=== PATIENT | female | born 1945 | race Caucasian/White ===

== ENCOUNTER → 2019-12-16 10:16 | Outpatient (BNVA) | payer MEDICARE, SELFPAY | PROVIDERS: Visit Provider Nurse Practitioner Family | DX: I10 Essential (primary) hypertension (principal); E11.9 Type 2 diabetes mellitus without complications; E55.9 Vitamin D deficiency, unspecified; F41.9 Anxiety disorder, unspecified; F32.9 Major depressive disorder, single episode, unspecified; E78.5 Hyperlipidemia, unspecified; M19.90 Unspecified osteoarthritis, unspecified site; R25.1 Tremor, unspecified | CPT/HCPCS: 80053; 80061; 82044; 82306; 83036; 84443; 85025 ==

== ENCOUNTER → 2020-06-28 09:37 | Outpatient (BNVA) | payer MEDICARE, SELFPAY | PROVIDERS: Visit Provider Nurse Practitioner Family | DX: M25.561 Pain in right knee (principal); M25.562 Pain in left knee; N32.81 Overactive bladder; E11.9 Type 2 diabetes mellitus without complications; Z78.0 Asymptomatic menopausal state; Z12.39 Encounter for other screening for malignant neoplasm of breast | CPT/HCPCS: 73562; 80053; 80061; 81003; 83036; 85025; 87077; 87086; 87186 ==

== ENCOUNTER 2020-08-23 14:15 | Outpatient (CLI) | payer MEDICARE, SELFPAY ==
--- NOTE | 2020-08-23 14:30 | MM_ITS ---
WS: [id number] BILATERAL SCREENING DIGITAL MAMMOGRAM WITH CAD HISTORY: screening COMPARISON: 08/15/2017 and 12/04/2013 Bilateral CC and MLO views submitted. Computer aided detection analyzed. Breast composition: There are scattered areas of fibroglandular density. No suspicious masses, microc alcifications or architectural distortion. Numerous benign calcifications in each breast. MM/[place] [id number] IMPRESSION: BI-RADS: 2-Benign FOLLOW UP: 1 Year Follow-up
--- NOTE | 2020-08-23 15:04 | XR_ITS ---
WS: [id number] SCREENING DEXA SCAN [employer] CLINICAL INFORMATION: osteoporosis screen COMPARISON: 3 FINDINGS: The L1-L4 bone mineral density measures 1.289 g/cm2. This corresponds to a T score score of 0.9 and Z score of 1.5. Left femoral neck bone mineral density measures 0.954 g/cm2. This corresponds to a T score of -0.4 an d Z score of 0.4. Right femoral neck bone mineral density measures 1.045 g/cm2. This corresponds to a T score 0.3of and Z score of 1.1. Mean femoral neck bone mineral density measures 1.000 g/cm2. This corresponds to a T score of -0.1 an d Z score of 0.8. XR/XR DEXA axial skeleton* [id number] IMPRESSION: Normal bone mineralization. Patient's FRAX calculated 10 year probability for major osteoporotic fracture i s 11.9 % and osteoporotic hip fracture is 1.0%.
== END 2020-08-23 14:16 | disposition home or self-care (01) ==
LOC: RADSHAW 14:23
PROVIDERS: PCP Nurse Practitioner Family; Visit Provider Nurse Practitioner Family
DX: Z12.31 Encounter for screening mammogram for malignant neoplasm of breast (principal); Z78.0 Asymptomatic menopausal state
CPT/HCPCS: 77067; 77080

== ENCOUNTER → 2020-10-12 09:28 | Outpatient (BNVA) | payer OTHER, SELFPAY | PROVIDERS: PCP Nurse Practitioner Family; Visit Provider Nurse Practitioner Family | DX: N32.81 Overactive bladder (principal); E11.9 Type 2 diabetes mellitus without complications; E55.9 Vitamin D deficiency, unspecified; I10 Essential (primary) hypertension; M15.9 Polyosteoarthritis, unspecified; R25.1 Tremor, unspecified; Z00.00 Encounter for general adult medical examination without abnormal findings; F41.9 Anxiety disorder, unspecified; F32.9 Major depressive disorder, single episode, unspecified; E78.5 Hyperlipidemia, unspecified | CPT/HCPCS: 80053; 80061; 82043; 82306; 83036; 84443; 85025 ==

== ENCOUNTER 2020-10-27 06:00 | Outpatient (RCR) | payer MEDICARE, SELFPAY | END 2020-10-31 23:59 | disposition home or self-care (01) | LOC: TPT 06:00 | PROVIDERS: PCP Nurse Practitioner Family; Referring Provider Nurse Practitioner Family; Visit Provider Nurse Practitioner Family | DX: M15.9 Polyosteoarthritis, unspecified (principal); R25.1 Tremor, unspecified | CPT/HCPCS: 97161 ==

== ENCOUNTER 2020-11-01 06:00 | Outpatient (RCR) | payer MEDICARE, SELFPAY | END 2020-11-28 23:59 | disposition home or self-care (01) | LOC: TPT 06:00 | PROVIDERS: PCP Nurse Practitioner Family; Referring Provider Nurse Practitioner Family; Visit Provider Nurse Practitioner Family | DX: M15.9 Polyosteoarthritis, unspecified (principal); R25.1 Tremor, unspecified | CPT/HCPCS: 97110 ==

== ENCOUNTER 2020-11-24 06:00 | Outpatient (RCR) | payer MEDICARE, SELFPAY | END 2020-11-28 23:59 | disposition home or self-care (01) | LOC: TOT 06:00 | PROVIDERS: PCP Nurse Practitioner Family; Referring Provider Nurse Practitioner Family; Visit Provider Nurse Practitioner Family | DX: M19.049 Primary osteoarthritis, unspecified hand (principal) | CPT/HCPCS: 97110; 97140; 97165 ==

== ENCOUNTER 2020-11-29 06:00 | Outpatient (RCR) | payer MEDICARE, SELFPAY | END 2020-12-29 23:59 | disposition home or self-care (01) | LOC: TPT 06:00 | PROVIDERS: PCP Nurse Practitioner Family; Referring Provider Nurse Practitioner Family; Visit Provider Nurse Practitioner Family | DX: M19.049 Primary osteoarthritis, unspecified hand (principal) | CPT/HCPCS: 97110 ==

== ENCOUNTER 2020-11-29 06:00 | Outpatient (RCR) | payer MEDICARE, SELFPAY | END 2020-12-29 23:59 | disposition home or self-care (01) | LOC: TOT 06:00 | PROVIDERS: PCP Nurse Practitioner Family; Referring Provider Nurse Practitioner Family; Visit Provider Nurse Practitioner Family | DX: M19.049 Primary osteoarthritis, unspecified hand (principal) | CPT/HCPCS: 97035; 97110; 97140; 97530 ==

== ENCOUNTER 2020-12-30 06:00 | Outpatient (RCR) | payer MEDICARE, SELFPAY | END 2021-01-26 16:33 | disposition home or self-care (01) | LOC: TPT 06:00 | PROVIDERS: PCP Nurse Practitioner Family; Referring Provider Nurse Practitioner Family; Visit Provider Nurse Practitioner Family | DX: M19.049 Primary osteoarthritis, unspecified hand (principal) | CPT/HCPCS: 97110 ==

== ENCOUNTER → 2021-03-31 09:34 | Outpatient (BNVA) | payer MEDICARE, SELFPAY | PROVIDERS: PCP Nurse Practitioner Family; Visit Provider Nurse Practitioner Family | DX: E11.9 Type 2 diabetes mellitus without complications (principal); E55.9 Vitamin D deficiency, unspecified | CPT/HCPCS: 80053; 80061; 82306; 83036; 84443; 85025 ==

== ENCOUNTER → 2021-10-18 10:52 | Outpatient (BNVA) | payer MEDICARE, SELFPAY | PROVIDERS: PCP Nurse Practitioner Family; Visit Provider Nurse Practitioner Family | DX: Z00.00 Encounter for general adult medical examination without abnormal findings (principal); N32.81 Overactive bladder; E11.9 Type 2 diabetes mellitus without complications; F32.9 Major depressive disorder, single episode, unspecified; F41.9 Anxiety disorder, unspecified; E55.9 Vitamin D deficiency, unspecified; R25.1 Tremor, unspecified; E78.5 Hyperlipidemia, unspecified; M15.9 Polyosteoarthritis, unspecified; I10 Essential (primary) hypertension; J30.9 Allergic rhinitis, unspecified | CPT/HCPCS: 80053; 80061; 82306; 82607; 83036; 84443; 85025 ==

== ENCOUNTER 2022-03-01 10:03 | Outpatient (CLI) | payer MEDICARE, SELFPAY ==
--- NOTE | 2022-03-01 10:17 | MM_ITS ---
WS: [id number] Bilateral screening 3D tomosynthesis digital mammogram, 03/01/2022 Clinical Data: Z12.31 - Encounter for screening mammogram for malignant ... Comparison: 08/23/2020, 08/15/2017, 12/04/2013, 11/11/2012, 09/19/2011, 09/01/2010, 08/18/2009, 8, 06/24/2007 Findings: The breast parenchymal pattern shows air genies density No spiculated masses or clustered calcificati ons are seen. There are no secondary signs of carcinoma. There are large benign calcifications especi ally in the right breast but also small calcifications noted in the left breast MM/[place] [id number] Impression: 1. Negative bilateral mammogram unchanged. 2. Recommend annual screening mammograms. BIRADS: 2-Benign FOLLOW UP: 1 Year Follow-up The CAD wash test checker was used.
== END 2022-03-01 10:04 | disposition home or self-care (01) ==
LOC: RAD 10:04
PROVIDERS: PCP Nurse Practitioner Family; Visit Provider Nurse Practitioner Family
DX: Z12.31 Encounter for screening mammogram for malignant neoplasm of breast (principal)
CPT/HCPCS: 77063; 77067

== ENCOUNTER → 2022-05-17 08:12 | Outpatient (BNVA) | payer MEDICARE, SELFPAY | PROVIDERS: PCP Nurse Practitioner Family; Visit Provider Nurse Practitioner Family | DX: E55.9 Vitamin D deficiency, unspecified (principal); E78.5 Hyperlipidemia, unspecified; E11.9 Type 2 diabetes mellitus without complications; I10 Essential (primary) hypertension | CPT/HCPCS: 80053; 80061; 82043; 82306; 83036; 84443; 85025 ==

== ENCOUNTER → 2022-05-23 13:28 | Outpatient (BNVA) | payer MEDICARE, SELFPAY | PROVIDERS: PCP Nurse Practitioner Family; Visit Provider Nurse Practitioner Family | DX: M25.512 Pain in left shoulder (principal) | CPT/HCPCS: 73030 ==

== ENCOUNTER → 2022-10-06 14:30 | Outpatient (BNVA) | payer MEDICARE, SELFPAY | PROVIDERS: PCP Nurse Practitioner Family; Visit Provider Nurse Practitioner Family | DX: M25.511 Pain in right shoulder (principal) | CPT/HCPCS: 73030 ==

== ENCOUNTER → 2022-10-09 09:48 | Outpatient (BNVA) | payer MEDICARE, SELFPAY | PROVIDERS: PCP Nurse Practitioner Family; Visit Provider Nurse Practitioner Family | DX: E11.9 Type 2 diabetes mellitus without complications (principal); M25.511 Pain in right shoulder; N32.81 Overactive bladder; R25.1 Tremor, unspecified; F32.9 Major depressive disorder, single episode, unspecified; F41.9 Anxiety disorder, unspecified; M15.9 Polyosteoarthritis, unspecified; E78.5 Hyperlipidemia, unspecified; I10 Essential (primary) hypertension | CPT/HCPCS: 80053; 80061; 83036; 85025 ==

== ENCOUNTER → 2022-10-17 15:34 | Outpatient (BNVA) | payer MEDICARE, SELFPAY | PROVIDERS: PCP Nurse Practitioner Family; Visit Provider Orthopaedic Surgery | DX: M17.0 Bilateral primary osteoarthritis of knee (principal) | CPT/HCPCS: 20610; 99213; J0702; J3490 ==

== ENCOUNTER → 2022-11-21 10:52 | Outpatient (BNVA) | payer MEDICARE, SELFPAY | PROVIDERS: PCP Nurse Practitioner Family; Visit Provider Orthopaedic Surgery | DX: M17.12 Unilateral primary osteoarthritis, left knee (principal) | CPT/HCPCS: 73560; 73565; 99213 ==

== ENCOUNTER → 2022-12-18 12:08 | Outpatient (BNVA) | payer MEDICARE, SELFPAY | PROVIDERS: PCP Nurse Practitioner Family; Visit Provider Nurse Practitioner Family | DX: R05.9 Cough, unspecified (principal); R50.9 Fever, unspecified; M25.511 Pain in right shoulder; J40 Bronchitis, not specified as acute or chronic | CPT/HCPCS: 87400; 87486; 87581; 87633 ==

== ENCOUNTER 2023-01-03 06:00 | Outpatient (RCR) | payer MEDICARE, SELFPAY | END 2023-01-28 23:59 | disposition home or self-care (01) | LOC: TPT 06:00 | PROVIDERS: Visit Provider Nurse Practitioner Family | DX: M25.511 Pain in right shoulder (principal) | CPT/HCPCS: 97110; 97140; 97163 ==

== ENCOUNTER 2023-01-05 08:28 | Outpatient (CLI) | payer MEDICARE, SELFPAY ==
--- NOTE | 2023-01-05 08:45 | CT_ITS ---
WS: [id number] CT LEFT knee, noncontrast HISTORY: pre op planning TECHNIQUE: Protocol for [facility] total knee replacement has been obtained. This includes axial imaging th rough the LEFT hip, LEFT knee and LEFT ankle. DLP: 991.93 mGy.cm COMPARISON: None available. Pelvis: Mild narrowing of the hip joints. No destructive bone process. LEFT knee: Moderate to severe tricompartment osteoarthritis. Hypertrophic bone formation along the sanchez int lines. No fracture. Small joint effusion. Calcified loose body within the joint effusion. LEFT ankle no destructive process or fracture. CT/CT knee LT [facility] IMPRESSION: CT imaging provided for [facility] robotic total knee replacement.
== END 2023-01-05 08:29 | disposition home or self-care (01) ==
LOC: RAD 08:34
PROVIDERS: PCP Nurse Practitioner Family; Visit Provider Orthopaedic Surgery
DX: Z01.818 Encounter for other preprocedural examination (principal); M17.12 Unilateral primary osteoarthritis, left knee
CPT/HCPCS: 73700; 93005

== ENCOUNTER 2023-01-15 13:21 | Observation (INO) | payer MEDICARE, SELFPAY ==
--- NOTE | 2023-01-05 10:12 | ECG_ITS ---
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 Measurements Intervals [place] Rate: 66 P: 27 FL: 187 QRS: -15 QRSD: 99 T: 60 QT: 386 QTc: 407 Interpretive Statements SINUS RHYTHM LOW QRS VOLTAGE IN PRECORDIAL LEADS [QRS DEFLECTION < 1.0 mV IN CHEST LEADS] ANTERIOR MYOCARDIAL INFARCTION , PROBABLY OLD [40+ ms Q WAVE AND/OR ST/T ABNORMALITY IN V3/V4] No previous ECG available for comparison Electronically Signed On 01-05-2023 21:39:39 CDT by Ashtyn Johnson M.D. [id number]
[2023-01-05 10:27] VITALS: BMI 35.2
[2023-01-05 11:26] LABS: Basophils % 0.3 %; Eosinophils % 0.5 %; Hematocrit 43.4 % (37.0-47.0); Hemoglobin 14.4 g/dL (11.5-15.3); Lymphocytes # 1.7 10^3/uL (0.8-4.8); Lymphocytes % 28.1 %; Mean Corpuscular HGB Conc 33.2 g/dL (30.0-36.0); Mean Corpuscular Hemoglobin 30.5 pg (28.0-34.0); Mean Corpuscular Volume 91.9 fl (81-99); Mean Platelet Volume 11.6 fL (7.4-10.4); Monocytes # 0.4 10^3/uL (0.2-0.9); Monocytes % 7.2 %; Neutrophils # 3.81 10^3/uL (1.8-7.7); Neutrophils % 63.7 %; Nucleated Red Blood Cells % 0 %; Platelet Count 195 10^3/cmm (130-400); Red Blood Count 4.72 10^6/uL (4.1-5.3); Red Cell Distribution Width 12.7 % (12.1-15.1)
[2023-01-05 11:35] LABS: Anion Gap 16.8 (5-19); Blood Urea Nitrogen 17 mg/dL (8-23); Carbon Dioxide 25 mmol/L (22-29); Chloride 103 mmol/L (98-107); Glucose 176 mg/dL (65-115); Osmolality Calculated 298 mOsm/kg (285-295); Potassium 3.8 mmol/L (3.5-5.1); Sodium 141 mmol/L (136-145)
--- NOTE | 2023-01-05 13:08 | P.ANESASSM_ITS ---
Pre-Anesthetic Assessment Height/Weight: Height 1.73 m Weight 105.233 kg Operation Date: 01/15/23 07:00 Proposed Procedures p left total knee makoplasty/ 14301, M17.12(Left) - Patricio Anderson MD Social No alcohol and No tobacco Exam alert, oriented x 3, clear to auscultation bilaterally and regular rate & rhythm Airway Submandibular: Other (obese) Cervical ROM: Other (obese) Mallampati: Class III Pulmonary None reported CV/HEM Hypertension None reported Hepatic None reported GI None reported Metabolic Diabetes Mellitus, Hyperlipidemia and Morbid Obesity [facility] [place] Osteoarthritis/DJD Anesthetic Plan ASA status: 3 Anesthesia: General and Regional (specify below) (Adductor Canal Block) Medications/Allergies Home Medications Medication Instructions Recorded Confirmed Last Taken Type primidone 50 mg tablet 75 mg PO TID #405 tabs 10/18/21 01/05/23 01/05/23 Rx fluticasone propionate 50 2 spray intranasal DAILY #9.9 mL 05/24/22 01/05/23 01/05/23 Rx mcg/actuation nasal spray,suspension (Flonase Allergy Relief) dapagliflozin 10 mg tablet 10 mg PO QAM #30 tabs 08/21/22 01/05/23 01/05/23 Rx (Farxiga) blood sugar diagnostic (Blood #100 ea 10/09/22 12/18/22 Unknown Rx Glucose Test strips) blood-glucose meter (Blood Glucose #1 ea 10/09/22 12/18/22 Unknown Rx Monitoring kit) blood sugar diagnostic (OneTouch #100 ea 11/15/22 12/18/22 Unknown Rx Verio test strips) promethazine-DM 6.25 mg-15 mg/5 mL 5 ml PO Q6H PRN cough #118 mL 01/02/23 01/05/23 Unknown Rx oral syrup aspirin 81 mg capsule 81 mg PO DAILY 01/05/23 01/05/23 01/05/23 History atorvastatin 20 mg tablet 20 mg PO DAILY 01/05/23 01/05/23 01/05/23 History cetirizine 10 mg tablet 10 mg PO DAILY 01/05/23 01/05/23 01/05/23 History citalopram 10 mg tablet 10 mg PO DAILY 01/05/23 01/05/23 01/05/23 History irbesartan 150 mg tablet 150 mg PO DAILY 01/05/23 01/05/23 01/05/23 History meloxicam 15 mg tablet 15 mg PO DAILY 01/05/23 01/05/23 01/05/23 History metoprolol tartrate 25 mg tablet 25 mg PO DAILY 01/05/23 01/05/23 01/05/23 History oxybutynin chloride 10 mg 10 mg PO DAILY 01/05/23 01/05/23 01/05/23 History tablet,extended release 24 hr verapamil 120 mg tablet,extended 120 mg PO DAILY 01/05/23 01/05/23 01/05/23 History release Allergies Allergy/AdvReac Type Severity Reaction Status Date / Time Penicillins Allergy Intermediate rash Verified 12/18/22 08:52 [facility] Anesthesia Medical History Anxiety and depression Diabetes mellitus Enrolled in chronic care management GERD (gastroesophageal reflux disease) Hyperlipidemia Hypertension Osteoarthritis Tremor Surgical History Hx of colonoscopy (~2013) Family History Family/Other Cancer Diabetes Heart disease Social History Smoking and tobacco status: never smoked Second hand smoke exposure: No Alcohol intake: never Caregiver/support person: Yes (family) Lives independently: Yes Household members: none Housing: House Marital status: service: No Current occupational status: employed Current occupation: [employer] Current gender identity: Female Special hay needs: No Agree to transfusion: Yes Data Anesthesia 01/05/23 10:55 01/05/23 10:55 Short CBC 01/05/23 Range/Units 10:55 WBC 6.0 (4.0-10.0) 10^3/uL Hgb 14.4 (11.5-15.3) g/dL Hct 43.4 (37.0-47.0) % MCV 91.9 (81-99) fl Plt Count 195 (130-400) 10^3/cmm Neut % (Auto) 63.7 % Neut # (Auto) 3.81 (1.8-7.7) 10^3/uL BMP 01/05/23 10:55 Sodium 141 Potassium 3.8 Chloride 103 Carbon Dioxide 25 BUN 17 Creatinine 0.6 Glucose 176 H Calcium 9.0 Cardiac Studies: No Data to Display
[2023-01-15] VITALS (19 sets, daily range): BP systolic 90–173; BP diastolic 55–86; PULSE 61–82; RESP 14–18; TEMP 36.4–37.2; O2SAT 90–100; BMI 35.2
[2023-01-15] MEDS: gabapentin 300 mg Capsule PO ×2 (06:21→21:51)
[2023-01-15] MEDS: CELEcoxib 200 mg Capsule 400 MG PO (06:22)
[2023-01-15] MEDS: oxyCODONE 20 mg ER (12 HR) Tablet PO (06:22)
[2023-01-15] MEDS: acetaminophen 500 mg Tablet 1000 MG PO ×3 (06:23→23:52)
--- NOTE | 2023-01-15 06:57 | W.PM.OPSFHP ---
Same Day Surgery H&P Indication for Procedure/HPI DATE OF PROCEDURE: January 15, 2023 CHIEF COMPLAINT/INDICATIONFOR SURGICAL PROCEDURE: Osteoarthritis left knee here for total knee arthroplasty PREOP DIAGNOSIS: Osteoarthritis left knee PLANNED PROCEDURE: Operation Date: 01/15/23 07:00 Proposed Procedures p left total knee makoplasty/ 84870, M17.12(Left) - Patricio Anderson MD 77-year-old here for left total knee arthroplasty she reports that prior injections have stopped giving her manager long term care benefit.? Last injection she received a few weeks ago provided only 2 weeks improvement.? States she has a very good pain threshold but has a very hard time getting around.? She relies on a walker with wheels to get around her house.? She has a difficult time with any time out in the community.? Medications/Allergies* Home Medications Medication Instructions Recorded Confirmed Type aspirin 81 mg capsule 81 mg PO DAILY 01/05/23 01/05/23 History atorvastatin 20 mg tablet 20 mg PO DAILY 01/05/23 01/15/23 History cetirizine 10 mg tablet 10 mg PO DAILY 01/05/23 01/15/23 History citalopram 10 mg tablet 10 mg PO DAILY 01/05/23 01/15/23 History irbesartan 150 mg tablet 150 mg PO DAILY 01/05/23 01/15/23 History meloxicam 15 mg tablet 15 mg PO DAILY 01/05/23 01/05/23 History metoprolol tartrate 25 mg tablet 25 mg PO DAILY 01/05/23 01/15/23 History oxybutynin chloride 10 mg 10 mg PO DAILY 01/05/23 01/15/23 History tablet,extended release 24 hr verapamil 120 mg tablet,extended 120 mg PO DAILY 01/05/23 01/15/23 History release Allergies/Adverse Reactions Allergy/AdvReac Type Severity Reaction Status Date / Time Penicillins Allergy Intermediate rash Verified 12/18/22 08:52 Pertinent History/Comorbid Conditions* Medical History (Updated 10/17/22 @ 16:09 by Patricio Anderson MD) Anxiety and depression Diabetes mellitus Enrolled in chronic care management GERD (gastroesophageal reflux disease) Hyperlipidemia Hypertension Osteoarthritis Tremor Surgical History (Updated 06/28/20 @ 09:16 by ILAN Peralta) Hx of colonoscopy (~2013) Family History (Updated 11/28/19 @ 13:35 by Rafaela Young, ELEVATOR CONSTRUCTOR, RT) Diabetes Family/Other Heart disease Family/Other Cancer Family/Other Social History Smoking and tobacco status: never smoked Second hand smoke exposure: No Alcohol intake: never Caregiver/support person: Yes (family) Lives independently: Yes Household members: none Housing: House Marital status: service: No Current occupational status: employed Current occupation: [employer] Current gender identity: Female Special hay needs: No Agree to transfusion: Yes Pertinent Exam Findings alert, oriented x 3, clear to auscultation bilaterally and regular rate & rhythm The patient has a resting varus deformity of her left knee. She is tender over medial joint line. Cannot passively correct her to neutral Cruciate and collateral ligaments are stable Patella tracks well with clear patellofemoral crepitations She has a strong left dorsalis pedis pulse MOTOR: Strong quadriceps hamstrings tibialis anterior and extensor houses longus strength SENSATION: Intact to light touch Recommendations Surgery/Procedure today Coding Level of Care Code Acute Code for Chg Fwd Diagnoses
[2023-01-15] MEDS: ceFAZolin 2,000 MG in sodium chloride 0.9% (plus) 50 ML 100 MG IV ×3 (06:59→23:53)
[2023-01-15 07:09] LABS: Glucose Point of Care 142 mg/dL (70-110)
[2023-01-15] MEDS: EPINEPHrine 1 mg/mL INJ XX (07:52)
[2023-01-15] MEDS: ketorolac 30 mg/mL INJ XX (07:52)
[2023-01-15] MEDS: tranexamic acid 1,000 mg/10mL SDV 1000 MG IRRIGATION (07:52)
--- NOTE | 2023-01-15 08:16 | P.ANESUD_ITS ---
Pre-Anesthetic Update Pre-Anesthetic Assessment: Date of Surgery/Procedure: 01/15/23 Preop Rukhsana gnosis: Osteoarthritis left knee Proposed Procedure: Operation Date: 01/15/23 07:00 Proposed Procedures p left total knee makoplasty/ 75592, M17.12(Left) - Patricio Anderson MD Any changes to Pre-Anesthetic Assessment?: No Last Intake: Intake Last Liquid Date 01/14/23 Last Liquid Time 19:00 Last Solid Date 01/14/23 Last Solid Time 19:00 Vitals: Temperature 97.9 F 01/15/23 06:06 Temperature Source Temporal Artery S can 01/15/23 06:06 Pulse Rate 61 01/15/23 06:06 Respiratory Rate 16 01/15/23 06:22 Respiratory Effort Spontaneous, Non- Labored 01/15/23 06:22 Respiratory Depth Normal 01/15/23 06:22 Respiratory Patter n Normal 01/15/23 06:22 Blood Pressure 173/81 01/15/23 06:06 Blood Pressure Jenae n 111 01/15/23 06:06 Pulse Oximetry 97 01/15/23 06:22 Oxygen Delivery Me thod Room Air 01/15/23 06:06 Exam: Pre-Anes Outpt Exam: alert, oriented x 3, clear to auscultation bilaterally and regular rate & rhythm Cardiac Studies: No Data to Display Anesthesia Procedures Nerve Block: Nerve Block 1: Main Anesthesia: spinal anesthesia block Time Out Performed: Yes Consent: requested by attending/covering physician, from patient, risks and benefits reviewed and patient agrees to proceed Nerve block location: adductor canal (left) Anesthesia monitors applied: pulse oximetry, EKG, BP cuff and oxygen Nerve block position: supine Anesthetic Used: ropivicaine 0.5% Amount of anesthesia used (mL): 20 Ultrasound used to: recognize landmarks Nerve Stimulator Used?: No Interscalene/Femoral BLK: 4 stimuplex 21 g needle used for position and inplane approach Injection: neg aspiration of heme Patient Tolerated Procedure: well Complications: none
--- NOTE | 2023-01-15 08:54 | PM.OP ---
Operative Report Date of procedure: January 15, 2023 Pre-op diagnosis: Preop Diagnosis Osteoarthritis left knee Post-op diagnosis: same Post-op diagnosis: Same Post-op findings: Same Procedure done: Left total knee arthroplasty Implants: [place] Triathalon total knee arthroplasty components were used includin) Size 5 triathalon cruciate retaining femoral component 2) Size 5 Tritanium tibial component 3) Size 5/10 mm thickness CS tibial bearing insert Pathology: none sent Surgeon: Patricio Anderson Industrial Equipment Wirer: Pravin Roblero Industrial Equipment Wirer: The nurse practitioner the nurse practitioner assisted with critical portions of the case including positioning, draping, exposure, component implantation, closure and dressing application and is present through the entirety of the case. Anesthesia: Nerve Block (Spinal, adductor canal block) Estimated blood loss (mL): 100 Findings: The patient eburnated bone over the medial femoral condyle and medial tibial plateau. There were peripheral osteophytes about the patella but cartilage thickness was well-preserved centrally patella tracked well with the trochlea Condition: stable Disposition: PACU Brief History: The patient is a 77-year-old female with progressive activity limiting left knee pain failed conservative treatment with anti-inflammatories and injections. She is admitted for elective left total knee arthroplasty Procedure: The patient was taken to the operating room. Patient was given 1 g of tranexamic acid and 2 g of Ancef. The above anesthesia provided by the anesthesia service. A timeout was performed. The patient was prepped and draped in the usual fashion with the lower extremity exposed. A anterior incision was made, midline, from a point proximal to the patella to the distal tibial tubercle. The knee was entered through a medial parapatellar approach. The patella could be displaced laterally and the knee flexed. The patellar fat pad was resected to provide better visibility. Retractors were placed medially and laterally adjacent to the tibial plateau. At a point approximately 8 cm above the patella, 2 small incisions were made with a scalpel blade and 2 long threaded pins were placed into the anterior medial femur engaging both cortices. The femoral arrays were placed over these pins and secured. At a point 8 cm distal to the tibial tubercle. 2 shorter bicortical threaded pins were placed across the anterior medial tibia and the tibial arrays placed. A checkpoint was made just proximal and medial to the medial femoral condyle and just medial to the tibial plateau. Small osteotomes were placed in the joint in both flexion and extension to determine ligamentous laxity. The tibia was cut in 4 degrees of valgus and the femur externally rotated 1 degree to accommodate heel compartment tightness in flexion and extension.. The Vringo robot was then introduced to the field and the femur and tibia cut in accordance with our plan. he [employer] Fastseal was then used to provide hemostasis, particularly about the posterior capsule. A trial with the above components provided excellent stability and full range of motion. The femur was then prepared for the femoral pegs of the component in the tibia for the tibial component. The femur and tibia were then press-fit into place. An osteotome was used to remove the lateral 8 mm of the patella to minimize chances of later impingement. A neurectomy was accomplished circumferentially about the patella with electrocautery and lateral osteophytes removed. Surfaces were cleaned with a gentamicin solution. The femur and tibia were then press-fit into place. The posterior capsule and collateral ligaments were then injected with a solution of 100 mL of 0.2% ropivacaine, 1 mL of a 1:1000 epinephrine solution, 30 mg of Toradol, and 1 g of tranexamic acid. Final polyethylene component was then snapped into place into the tibia. The extensor retinaculum was closed with a running 1 Stratafix interrupted 1 Ethibond. The subcutaneous tissues were closed with 2-0 Vicryl and the skin was closed with a running 4-0 Stratafix. The wound was covered with a Dermabond Prineo dressing. It was covered with 4xrs and a compressive Tubigauze was applied. The patient was taken to recovery room in stable condition.
--- NOTE | 2023-01-15 09:05 | XR_ITS ---
WS: [id number] Left knee, AP and lateral portable views, 01/15/2023 Clinical Data: Left Total knee arthroplasty Comparison: AP both knees, left knee, 11/21/2022 Findings: The left knee arthroplasty components are in good position. The left patella shows no change with mod erate spurring. There is postoperative air in the left knee joint. XR/XR knee LT 1-2V [id number] Impression: Left knee arthroplasty.
--- NOTE | 2023-01-15 09:16 | PC.NURSE ---
Pt arrived to PACU, O2 at 6L/min via simple mask in place. Dressing to left knee C/D/I, left toes w/d, cap refill <3 seconds, good pedal pulse. Ice pack applied.
--- NOTE | 2023-01-15 09:30 | PC.NURSE ---
Pt awake, O2 removed, sats remain >92% on RA. Pt reports sensation at level L2 and above. Able to wiggles toes.
[2023-01-15] MEDS: oxyCODONE 5 mg IR Tab/Cap PO ×2 (12:34→18:19)
[2023-01-15] MEDS: primidone 50 mg Tablet 75 MG PO ×2 (14:22→21:51)
[2023-01-15] MEDS: sodium chloride 0.9% 1,000 ML 100 ML IV ×2 (14:22→23:54)
[2023-01-15] MEDS: cetirizine 10 mg Tablet PO (14:23)
[2023-01-15] MEDS: sennosides-docusate Tablet 2 TAB PO ×2 (14:23→17:58)
--- NOTE | 2023-01-15 14:59 | ANE.PACU2 ---
Inpatient post-anesthesia follow up: Airway intact: Yes Vital signs: Temperature 97.7 F Pulse Rate 67 Respiratory Rate 18 Blood Pressure 149/69 Pulse Oximetry 95 Oxygen Delivery Me thod Room Air Oxygen Flow Rate 6 Fraction of Inspir ed Oxygen Hydration adequate: Yes Nausea and vomiting: No Pain level: 2 Mental status: Baseline
--- NOTE | 2023-01-15 21:49 | PC.NURSE ---
Capillary Blood Glucose at 2100 171, Accuchek not docking.
[2023-01-15] MEDS: CELEcoxib 200 mg Capsule PO (21:51)
[2023-01-15] MEDS: insulin lispro 100 unit/1 mL SUBCUT (21:51)
[2023-01-15] MEDS: atorvastatin 40 mg Tablet 20 MG PO (21:51)
[2023-01-15] MEDS: metoprolol tartrate 25 mg Tablet PO (21:52)
[2023-01-16] VITALS: BP 130/57; PULSE 68; RESP 16; TEMP 36.8; O2SAT 91
[2023-01-16 04:37] VITALS: BP 134/69; PULSE 72; RESP 18; TEMP 36.7; O2SAT 93
[2023-01-16] MEDS: ceFAZolin 2,000 MG in sodium chloride 0.9% (plus) 50 ML 100 MG IV (06:06)
[2023-01-16] MEDS: acetaminophen 500 mg Tablet 1000 MG PO (06:07)
[2023-01-16 06:23] VITALS: RESP 16
[2023-01-16] MEDS: oxyCODONE 5 mg IR Tab/Cap PO ×2 (06:23→10:43)
--- NOTE | 2023-01-16 07:25 | PM.DCS ---
Discharge Providers Date of Admission: 01/15/23 13:21 Date of Discharge: January 16, 2023 Attending Provider at Admission: Patricio Rodrigues MD Attending Provider at Discharge: Patricio Rodrigues MD Primary Care Provider: ILAN Peralta Diagnoses at Discharge Discharge Diagnosis (1) Status post left knee replacement: Status: Acute (2) Osteoarthritis of left knee: Status: Resolved (3) Diabetes mellitus: Status: Acute Qualifiers: Diabetes mellitus type: type 2 Diabetes mellitus ocean transportation intermediary insulin use: without ocean transportation intermediary use Diabetes mellitus complication status: without complication Qualified Code(s): E11.9 - Type 2 diabetes mellitus without complications Reason for Visit Reason for Visit: M17.12 Brief History: The patient is a 77-year-old female with left knee pain attributable to osteoarthritis not responsive to conservative measures. She is admitted for elective left total knee arthroplasty Hospital Course Hospital Course The patient tolerated surgery well. They remained hemodynamically stable. They was begun on aspirin and foot pumps for DVT prophylaxis. The patient was mobilized with therapy beginning the day of surgery and by the first postoperative day independent with the walker. As the pain was adequately controlled and they were fully mobile they were discharged home. Physical Exam Narrative: On the day of discharge the knee incision was clean. They had no drainage. There is minimal swelling in the thigh and knee and the calf. No distal neurovascular deficits were noted Urinary Catheter Management: [place]: Cath Placed During This Visit: yes, but has since been removed by the nurse Reason for Continuing Indwelling Catheter: Perioperative Use in Selected Surgeries Urinary Catheter Date of Insertion: 01/15/23 Urinary Catheter Time of Insertion: 07:15 Date Urinary Catheter Removed: 01/16/23 Time Urinary Catheter Discontinued: 06:33 Discharge Data Studies Completed and Pending Completed Studies During Hospitalization Category Date Time Status XR knee LT 1-2V 40390 Routine Exams 01/15/23 09:05 Completed Pending at discharge Category Date Time Status Hemoglobin AM LABS Lab 01/16/23 04:00 Ordered Radiology Impressions Knee X-Ray 01/15/23 09:05 Impression: Left knee arthroplasty. Laboratory Results WBC 6.0 10^3/uL (4.0-10.0) 01/05/23 10:55 RBC 4.72 10^6/uL (4.1-5.3) 01/05/23 10:55 Hgb 14.4 g/dL (11.5-15.3) 01/05/23 10:55 Hct 43.4 % (37.0-47.0) 01/05/23 10:55 MCV 91.9 fl (81-99) 01/05/23 10:55 MCH 30.5 pg (28.0-34.0) 01/05/23 10:55 MCHC 33.2 g/dL (30.0-36.0) 01/05/23 10:55 RDW 12.7 % (12.1-15.1) 01/05/23 10:55 Plt Count 195 10^3/cmm (130-400) 01/05/23 10:55 MPV 11.6 fL (7.4-10.4) H 01/05/23 10:55 Neut % (Auto) 63.7 % 01/05/23 10:55 Lymph % (Auto) 28.1 % 01/05/23 10:55 [place] % (Auto) 7.2 % 01/05/23 10:55 Eos % (Auto) 0.5 % 01/05/23 10:55 Baso % (Auto) 0.3 % 01/05/23 10:55 Neut # (Auto) 3.81 10^3/uL (1.8-7.7) 01/05/23 10:55 Lymph # (Auto) 1.7 10^3/uL (0.8-4.8) 01/05/23 10:55 [place] # (Auto) 0.4 10^3/uL (0.2-0.9) 01/05/23 10:55 Eos # (Auto) 0.0 10^3/uL (0.0-0.8) 01/05/23 10:55 Baso # (Auto) 0.0 10^3/uL (0.0-0.1) 01/05/23 10:55 Nucleated RBC % (auto) 0 % 01/05/23 10:55 Nucleated RBCs # 0.0 /100WBC 01/05/23 10:55 Sodium 141 mmol/L (136-145) 01/05/23 10:55 Potassium 3.8 mmol/L (3.5-5.1) 01/05/23 10:55 Chloride 103 mmol/L (98-107) 01/05/23 10:55 Carbon Dioxide 25 mmol/L (22-29) 01/05/23 10:55 Anion Gap 16.8 (5-19) 01/05/23 10:55 BUN 17 mg/dL (8-23) 01/05/23 10:55 Creatinine 0.6 mg/dL (0.5-0.9) 01/05/23 10:55 GFR Calculation Not Reportable 01/05/23 10:55 Glucose 176 mg/dL (65-115) H 01/05/23 10:55 POC Glucose 142 mg/dL (70-110) H 01/15/23 06:17 Calculated Osmolality 298 mOsm/kg (285-295) H 01/05/23 10:55 Calcium 9.0 mg/dL (8.5-10.5) 01/05/23 10:55 Vitals Last Vital Signs Temp 98.1 F 01/16/23 04:37 Pulse 72 01/16/23 04:37 Resp 16 01/16/23 06:23 BP 134/69 01/16/23 04:37 Pulse Ox 93 01/16/23 04:37 O2 Del Method Room Air 01/15/23 16:55 O2 Flow Rate 6 01/15/23 09:26 Discharge Plan Discharge Patient Disposition: Home Condition: Stable Prescriptions: New oxycodone 5 mg Tablet 5 mg PO Q4H PRN (Reason: Moderate Pain) 7 Days Qty: 30 0RF acetaminophen 500 mg Tablet 1,000 mg PO Q8H 14 Days Qty: 84 0RF celecoxib 200 mg Capsule 200 mg PO Q12H 14 Days Qty: 28 0RF Continued primidone 50 mg tablet 75 mg PO TID Qty: 405 1RF fluticasone propionate [Flonase Allergy Relief] 50 mcg/actuation spray,suspension 2 spray INTRANASAL DAILY Qty: 9.9 5RF Rx Instructions: administer into each nostril (DME) blood-glucose meter [Blood Glucose Monitoring] Kit See Rx Instructions .ROUTE .MEDSUPPLY Qty: 1 0RF Rx Instructions: use to check blood sugar daily and PRN (DME) Blood Glucose Test Strip See Rx Instructions .ROUTE .MEDSUPPLY Qty: 100 5RF Rx Instructions: use to check blood sugar daily and PRN Farxiga 10 mg tablet 10 mg PO QAM Qty: 30 5RF (DME) OneTouch Verio test strips Strip See Rx Instructions .ROUTE .MEDSUPPLY Qty: 100 4RF Rx Instructions: To test 1 x day promethazine-DM 6.25-15 mg/5 mL syrup 5 ml PO Q6H PRN (Reason: cough) Qty: 118 1RF verapamil 120 mg tablet extended release 120 mg PO DAILY atorvastatin 20 mg tablet 20 mg PO DAILY Rx Instructions: TAKE 1 TABLET BY MOUTH DAILY cetirizine 10 mg tablet 10 mg PO DAILY oxybutynin chloride 10 mg tablet extended release 24hr 10 mg PO DAILY citalopram 10 mg tablet 10 mg PO DAILY meloxicam 15 mg tablet 15 mg PO DAILY irbesartan 150 mg tablet 150 mg PO DAILY metoprolol tartrate 25 mg tablet 25 mg PO DAILY aspirin 81 mg Capsule 81 mg PO DAILY Discharge Orders: Discharge Order (Routine); Ordered 01/16/23 Ordered By: Patricio Rodrigues Other Ambulatory Orders: DME: [facility] (Order) Location: None Selected Ordered By: Patricio Rodrigues Discharge Diet: Advance as tolerated Discharge Activity: Limit activity as instructed Patient Instructions: Opioid Safety Activity Restrictions/Additional Instructions: Okay to shower. No soaking incision in tub Apply FirstIce up to 20 min/hr for pain and swelling Take Celebrex twice a day for the next 15 days for pain , discontinue other anti-inflammatories Take Tylenol 500mg (up to 2 tabs) 3 times a day for mild pain Take oxycodone for breakthrough pain. Exercises per physical therapy. May weight-bear as tolerated on total knee arthroplasty IF HAVE ANY PROBLEMS OR QUESTIONS CALL [facility] AT AND ASK TO HAVE DR. RODRIGUES PAGEBarbra. Discharge Attestations Time Spent in Discharge Care*: other Quality Metrics Clinical Quality Measures [ No reported AMI, CVA or VTE this stay] Coding Level of Care Code Acute Code for Chg Fwd Diagnoses Status post left knee replacement Z96.652 Osteoarthritis of left knee M17.12 Diabetes mellitus E11.9 Diabetes mellitus type: type 2 Diabetes mellitus residential insulin use: without ocean transportation intermediary use Diabetes mellitus complication status: without complication
[2023-01-16 08:03] LABS: Hemoglobin 12.6 g/dL (11.5-15.3)
[2023-01-16] MEDS: oxybutynin chloride XL 5 MG TABLET 10 MG PO (08:59)
[2023-01-16] MEDS: cetirizine 10 mg Tablet PO (08:59)
[2023-01-16] MEDS: gabapentin 300 mg Capsule PO (08:59)
[2023-01-16] MEDS: primidone 50 mg Tablet 75 MG PO (08:59)
[2023-01-16 09:00] VITALS: BP 134/69
[2023-01-16] MEDS: aspirin 81 mg EC Tablet PO (09:00)
[2023-01-16] MEDS: losartan 50 mg Tablet PO (09:00)
[2023-01-16] MEDS: sennosides-docusate Tablet 2 TAB PO (09:01)
[2023-01-16] MEDS: CELEcoxib 200 mg Capsule PO (09:01)
[2023-01-16] MEDS: citalopram 20 mg Tablet 10 MG PO (09:01)
[2023-01-16] MEDS: verapamil ER 240 mg Tablet 120 MG PO (09:46)
[2023-01-16] MEDS: enoxaparin 40 mg/0.4 mL Syringe SUBCUT (09:46)
[2023-01-16] MEDS: metoprolol tartrate 25 mg Tablet PO (09:47)
--- NOTE | 2023-01-16 10:23 | PC.CHAP ---
Pastoral Care Encounter/Spiritual Assessment Type of Contact [] Declined nurse consultant visit [] Patient/Family/Request visit [] Outpatient visit [] Follow-up visit [] Physician referral [] Code/Alert [x] Routine visit [] Staff referral [] Actively dying [] Patient sleeping [x] Family support [] [] Out of room [] Palliative care [] [] Receiving care in room [] Pre-surgical visit [] Trauma [] Long length of stay [] ICU visit [] Other: Relational/Emotional Strength [x] Patient feels connected with others/family/visitors/staff [] Distress [] Loneliness/isolation [] Abandonment Spirituality of Patient [x] Person of [place] [] Attends Jewish of their [place] [x] Believes in Prayer [] Reads Bible or Latter Day materials [] There are Spiritual issues to be addressed Biblical Studies Professor Interventions [x] Prayer [] Active listening [] Non-anxious presence [x] Spiritual/emotional support [] Crisis/trauma care [] Spiritual counseling [] Bereavement support [] Provided bereavement packet [] Provided Bible/devotional materials [] Provided toy/stuffed animal, coloring book to patient or family member [] Provided Communion [] Anointing/[place] [] Salvation [x] Completed spiritual assessment [] Other: Impact on Illness or Injury [] Angry [] Fearful [] Anxious [] Often cries [] Exhaustion [] Unable to work [] Unable to attend episcopal [] Unable to walk/stand [] Unable to read [] Unable to drive [] Unable to eat/drink [] Unable to sleep [] Unable to be with family [] Patient intubated [] Other: Summary Time spent with patient 10 min
[2023-01-16 10:27] VITALS: BP 134/69
--- NOTE | 2023-01-16 10:28 | PC.NURSE ---
Discharge Note Patient discharged to home via private vehicle accompanied by daughter. Discharge instructions reviewed with patient and/or outside sales representative insurance. Mobile pharmacy medications and/or prescriptions provided. Belongings/home medications returned.
[2023-01-16 10:43] VITALS: RESP 17
--- NOTE | 2023-01-16 12:25 | PC.NURSE ---
Walker delivered, then meds to beds. Patient left with all equipment.
[2023-01-17 05:41] LABS: Glucose Point of Care 130 mg/dL (70-110)
[2023-01-17 07:05] LABS: Glucose Point of Care 132 mg/dL (70-110)
[2023-01-17 07:06] LABS: Glucose Point of Care 197 mg/dL (70-110)
[2023-01-17 07:06] LABS: Glucose Point of Care 171 mg/dL (70-110)
[2023-01-17 07:06] LABS: Glucose Point of Care 137 mg/dL (70-110)
== END 2023-01-16 12:26 | disposition home health service (06) ==
LOC: MEDSURG 13:24
PROVIDERS: Anesthesiology; Admitting Provider Orthopaedic Surgery; PCP Nurse Practitioner Family; Visit Provider Orthopaedic Surgery
PROC: 8E0Y0CZ Robotic Assisted Procedure of Lower Extremity, Open Approach (ICD-10-PCS; CPT 27447; principal; 2023-01-15 07:00)
DX: M17.12 Unilateral primary osteoarthritis, left knee (principal); E11.9 Type 2 diabetes mellitus without complications; I10 Essential (primary) hypertension; E78.5 Hyperlipidemia, unspecified; E66.01 Morbid (severe) obesity due to excess calories; Z68.35 Body mass index [BMI] 35.0-35.9, adult; Z79.82 Long term (current) use of aspirin; Z88.0 Allergy status to penicillin
CPT/HCPCS: 27447; 36415; 36416; 51702; 73560; 80048; 82962; 85018; 85025; 96372; 97110; 97116; 97161; 97166; 97535; C1776; G0378; J0171; J0690; J1580; J1650; J1815; J1885; J2370; J2704; J2795; J7030

== ENCOUNTER → 2023-01-19 08:23 | Outpatient (BNVA) | payer MEDICARE, SELFPAY | PROVIDERS: PCP Nurse Practitioner Family; Visit Provider Nurse Practitioner Family | DX: Z47.89 Encounter for other orthopedic aftercare (principal); Z96.652 Presence of left artificial knee joint | CPT/HCPCS: 99024 ==

== ENCOUNTER 2023-01-29 06:00 | Outpatient (RCR) | payer MEDICARE, SELFPAY | END 2023-02-28 23:59 | disposition home or self-care (01) | LOC: TPT 06:00 | PROVIDERS: Visit Provider Nurse Practitioner Family | DX: M25.511 Pain in right shoulder (principal) | CPT/HCPCS: 97110; 97140 ==

== ENCOUNTER → 2023-02-16 07:53 | Outpatient (BNVA) | payer MEDICARE, SELFPAY | PROVIDERS: Visit Provider Nurse Practitioner Family | DX: Z96.652 Presence of left artificial knee joint (principal) | CPT/HCPCS: 73560; 73565; 99024 ==

== ENCOUNTER 2023-02-21 06:00 | Outpatient (RCR) | payer MEDICARE, SELFPAY | END 2023-02-28 23:59 | disposition home or self-care (01) | LOC: TPT 06:00 | PROVIDERS: Visit Provider Orthopaedic Surgery | DX: Z47.1 Aftercare following joint replacement surgery (principal); Z96.652 Presence of left artificial knee joint | CPT/HCPCS: 97110; 97162 ==

== ENCOUNTER 2023-03-01 06:00 | Outpatient (RCR) | payer MEDICARE, SELFPAY | END 2023-03-30 23:59 | disposition home or self-care (01) | LOC: TPT 06:00 | PROVIDERS: Visit Provider Nurse Practitioner Family | DX: M25.511 Pain in right shoulder (principal) | CPT/HCPCS: 97110; 97140; 97164 ==

== ENCOUNTER 2023-03-01 06:00 | Outpatient (RCR) | payer MEDICARE, SELFPAY | END 2023-03-30 23:59 | disposition home or self-care (01) | LOC: TPT 06:00 | PROVIDERS: Visit Provider Orthopaedic Surgery | DX: Z47.1 Aftercare following joint replacement surgery (principal); Z96.652 Presence of left artificial knee joint | CPT/HCPCS: 97110 ==

== ENCOUNTER 2023-03-31 06:00 | Outpatient (RCR) | payer MEDICARE, SELFPAY | END 2023-04-30 23:59 | disposition home or self-care (01) | LOC: TPT 06:00 | PROVIDERS: Visit Provider Orthopaedic Surgery | DX: Z47.1 Aftercare following joint replacement surgery (principal); Z96.652 Presence of left artificial knee joint | CPT/HCPCS: 97110; 97140 ==

== ENCOUNTER 2023-03-31 06:00 | Outpatient (RCR) | payer MEDICARE, SELFPAY | END 2023-04-30 23:59 | disposition home or self-care (01) | LOC: TPT 06:00 | PROVIDERS: Visit Provider Nurse Practitioner Family | DX: M25.511 Pain in right shoulder (principal) | CPT/HCPCS: 97110; 97140 ==

== ENCOUNTER → 2023-04-27 11:27 | Outpatient (BNVA) | payer MEDICARE, SELFPAY | PROVIDERS: PCP Nurse Practitioner Family; Visit Provider Nurse Practitioner Family | DX: E11.9 Type 2 diabetes mellitus without complications (principal); I10 Essential (primary) hypertension; E55.9 Vitamin D deficiency, unspecified | CPT/HCPCS: 80053; 80061; 82306; 83036; 84443; 85025 ==

== ENCOUNTER → 2023-04-30 10:25 | Outpatient (BNVA) | payer MEDICARE, SELFPAY | PROVIDERS: PCP Nurse Practitioner Family; Visit Provider Podiatrist Foot & Ankle Surgery | DX: E11.42 Type 2 diabetes mellitus with diabetic polyneuropathy (principal); L60.3 Nail dystrophy; Q82.8 Other specified congenital malformations of skin; M21.621 Bunionette of right foot; M21.622 Bunionette of left foot | CPT/HCPCS: 11721; 17110; 99204 ==

== ENCOUNTER 2023-05-01 06:00 | Outpatient (RCR) | payer MEDICARE, SELFPAY | END 2023-05-31 23:59 | disposition home or self-care (01) | LOC: TPT 06:00 | PROVIDERS: PCP Nurse Practitioner Family; Visit Provider Orthopaedic Surgery | DX: Z47.1 Aftercare following joint replacement surgery (principal); Z96.652 Presence of left artificial knee joint | CPT/HCPCS: 97110; 97140; 97530 ==

== ENCOUNTER → 2023-05-18 08:08 | Outpatient (BNVA) | payer MEDICARE, SELFPAY | PROVIDERS: PCP Nurse Practitioner Family; Visit Provider Nurse Practitioner Family | DX: Z96.652 Presence of left artificial knee joint (principal) | CPT/HCPCS: 73560; 73565; 99213; 99214 ==

== ENCOUNTER 2023-06-01 06:00 | Outpatient (RCR) | payer MEDICARE, SELFPAY | END 2023-06-30 23:59 | disposition home or self-care (01) | LOC: TPT 06:00 | PROVIDERS: PCP Nurse Practitioner Family; Visit Provider Orthopaedic Surgery | DX: T84.82XA Fibrosis due to internal orthopedic prosthetic devices, implants and grafts, initial encounter (principal); Z96.652 Presence of left artificial knee joint; Y79.2 Prosthetic and other implants, materials and accessory orthopedic devices associated with adverse incidents | CPT/HCPCS: 97110; 97140; 97164; 99214 ==

== ENCOUNTER 2023-06-20 05:41 | Day surgery (SDC) | payer MEDICARE, SELFPAY ==
[2023-06-19 08:44] VITALS: BMI 33.4
[2023-06-20] VITALS (10 sets, daily range): BP systolic 111–140; BP diastolic 41–62; PULSE 50–59; RESP 14–18; TEMP 36.1–36.4; O2SAT 91–95
--- NOTE | 2023-06-20 06:28 | ANES.PREANE2 ---
Pre-Anesthetic Assessment Height/Weight: Height 1.73 m Weight 99.79 kg Temp Pulse Resp BP Pulse Ox O2 Del Method 97.0 F L 59 L 17 128/62 95 Room Air 06/20/23 06:12 06/20/23 06:12 06/20/23 06:12 06/20/23 06:12 06/20/23 06:12 06/20/23 06:19 Preop Diagnosis: Left total knee arthroplasty arthrofibrosis Operation Date: 06/20/23 07:00 Proposed Procedures p LEFT KNEE MANIPULATION UNDER ANESTHESIA 46175,T84.82XA M25.060 M17.12(Left) - Duane Destiny, Familial anesthetic complications: None Was Beta Juan Ramon taken within 24 hours: N/A Was Clonidine taken within 24 hours: N/A Last intake: Intake Last Liquid Date 06/19/23 Last Liquid Time 21:00 Last Solid Date 06/19/23 Last Solid Time 18:00 Social No alcohol and No tobacco Exam alert, oriented x 3, clear to auscultation bilaterally and regular rate & rhythm Airway Mallampati: Class II Dentition: partials CV/HEM Hypertension Metabolic Diabetes Mellitus and Morbid Obesity Neuropsych tremors Anesthetic Plan ASA status: 3 Anesthesia: Choice Risk of > 500 ml blood loss (7ml/kg in children): No Medications/Allergies Home Medications Medication Instructions Recorded Confirmed Last Taken Type primidone 50 mg tablet 75 mg PO TID #405 tabs 10/18/21 06/20/23 06/20/23 Rx fluticasone propionate 50 2 spray intranasal DAILY #9.9 mL 05/24/22 06/20/23 01/14/23 Rx mcg/actuation nasal spray,suspension (Flonase Allergy Relief) blood sugar diagnostic (Blood #100 ea 10/09/22 06/01/23 Unknown Rx Glucose Test strips) blood-glucose meter (Blood Glucose #1 ea 10/09/22 06/01/23 Unknown Rx Monitoring kit) blood sugar diagnostic (OneTouch #100 ea 11/15/22 06/01/23 Unknown Rx Verio test strips) aspirin 81 mg capsule 81 mg PO DAILY 01/05/23 06/20/23 06/18/23 History cetirizine 10 mg tablet 10 mg PO DAILY 01/05/23 06/20/23 01/14/23 History promethazine-DM 6.25 mg-15 mg/5 mL 5 ml PO Q6H PRN cough #118 mL 01/09/23 06/20/23 01/12/23 Rx oral syrup diabetic shoes with 3 sets of #1 ea 04/30/23 06/01/23 Unknown Rx insoles atorvastatin 20 mg tablet 20 mg PO DAILY 06/20/23 06/20/23 06/19/23 History celecoxib 200 mg capsule 200 mg PO DAILY 06/20/23 06/20/23 Unknown History citalopram 10 mg tablet 10 mg PO DAILY 06/20/23 06/20/23 06/20/23 History dapagliflozin propanediol 10 mg 10 mg PO DAILY 06/20/23 06/20/23 06/19/23 History tablet (Farxiga) irbesartan 150 mg tablet 150 mg PO DAILY 06/20/23 06/20/23 06/19/23 History metoprolol tartrate 25 mg tablet 25 mg PO DAILY 06/20/23 06/20/23 06/20/23 History oxybutynin chloride 10 mg 10 mg PO DAILY 06/20/23 06/20/23 06/20/23 History tablet,extended release 24 hr verapamil 120 mg tablet,extended 120 mg PO DAILY 06/20/23 06/20/23 06/20/23 History release Allergies Allergy/AdvReac Type Severity Reaction Status Date / Time Penicillins Allergy Intermediate rash Verified 06/19/23 08:38 [facility] Anesthesia Medical History Anxiety and depression Diabetes mellitus Enrolled in chronic care management GERD (gastroesophageal reflux disease) Hyperlipidemia Hypertension Osteoarthritis Tremor Surgical History Hx of colonoscopy (~2013) Family History Family/Other Cancer Diabetes Heart disease Social History Smoking and tobacco status: never smoked Second hand smoke exposure: No Alcohol intake: never Substance/Drug Use: never Caregiver/support person: Yes (family) Lives independently: Yes Household members: none Housing: House Marital status: service: No Current occupational status: employed Current occupation: [employer] Current gender identity: Female Special hay needs: No Agree to transfusion: Yes Data Anesthesia Cardiac Studies: No Data to Display
[2023-06-20] MEDS: ketorolac 30 mg/mL INJ IVP (06:33)
[2023-06-20] MEDS: acetaminophen 1,000 MG/100 ML PIGGYBACK 400 MG IV (06:33)
[2023-06-20] MEDS: sodium chloride 0.9% 1,000 ML 30 ML IV (06:34)
[2023-06-20 06:40] LABS: Glucose Point of Care 113 mg/dL (70-110)
--- NOTE | 2023-06-20 06:59 | W.PM.OPSUD ---
Surgery/Procedure H&P Update DATE OF PROCEDURE: June 20, 2023 DATE H&P PERFORMED: 06/01/23 H&P UPDATE INFORMATION: I have reviewed H&P completed within last 30 days, I have examined patient prior to procedure and No changes to prior documentation PREOP DIAGNOSIS: Left total knee arthroplasty arthrofibrosis PRIMARY INDICATION FOR PROCEDURE: Left knee arthrofibrosis PLANNED PROCEDURE: Operation Date: 06/20/23 07:00 Proposed Procedures p LEFT KNEE MANIPULATION UNDER ANESTHESIA 12595,T84.82XA M25.060 M17.12(Left) - Duane Dixon DO
--- NOTE | 2023-06-20 07:24 | XR_ITS ---
WS: [id number] XR knee LT 1-2V 37679 REASON FOR EXAM: postop manipulation FINDINGS: Left knee arthroplasty. Prosthetic components are intact and in proper position and alignment. No change from 05/18/2023. No focal bone abnormality. IMPRESSION: Stable left knee arthroplasty.
--- NOTE | 2023-06-20 07:26 | P.BOP_ITS ---
Date of procedure: [June 20, 2023] Surgeon name: [Dr. Destiny GODINEZ] Traffic Reporter(s) name(s): [John Dixon physician assistant professor of english] Procedure(s) performed: [Left knee manipulation under anesthesia] Description of findings: [Left Knee arthrofibrosis] Estimated blood loss: [0] Specimen(s) removed: [none] Post-operative diagnosis: [Left knee arthrofibrosis]
--- NOTE | 2023-06-20 07:28 | PM.OP ---
Operative Report Date of procedure: June 20, 2023 Pre-op diagnosis: Left knee total joint arthroplasty arthrofibrosis Post-op diagnosis: Same Post-op findings: Arthrofibrosis significant decreased range of motion 5?80 Procedure done: Left knee manipulation under anesthesia Surgeon: Duane Dixon DO [employer] Security: John Dixon PA-C Anesthesia: MAC IV fluids: 400 mL Complications: None Findings: See operative report narrative Condition: stable Disposition: same day Brief History: Patient is a 77-year-old female who status post left total knee arthroplasty she is developed knee arthrofibrosis her date of surgery was 01/15/2023. She had been followed up by my partner this was his patient since he is of the practices patient was then subsequently evaluated by me she still had pretty significant decreased range of motion in the office given her lack of motion we talked about treatment options as far as risk benefits complication alternatives with surgery even though this would be later I still feel as though there is some benefit for a left knee manipulation under anesthesia we talked about this in detail she understands the ins and outs procedure the risk benefits complications alternatives surgery and through shared decision making she elects proceed with left knee manipulation under anesthesia. Risk of surgery include not limited to make it better make it worse persistent knee arthrofibrosis, periprosthetic fracture, persistent pain, Wound complications. Understanding risk of surgery she elects to proceed all questions answered. Procedure: Patient was seen eval in the preoperative holding area. Consent was reviewed and signed with patient correct extremity was then marked. Patient was then seen evaluate by anesthesia once cleared for surgery she was taken back to the operative suite she was kept on the [facility] she then underwent anesthesia per the anesthesia department. Once appropriately anesthetized final timeout was performed. And confirm the appropriate procedure. I then performed a standard evaluation of the left knee which patient had range of motion of 5 to 80 degrees of flexion today. I then subsequently utilizing a short lever arm keeping my left hand on the proximal tibia and the distal femur maintaining that short lever arm slowly performed a standard manipulation with palpable crepitus and audible breaking through the scar tissue to regain significant improved flexion range of motion. I then did place a small roll of towels under the heel and performed a slight manipulation posteriorly with a short lever arm to achieve final full flexion. No complications were noted. Patient was able to achieve 0-120 for her range of motion satisfied with this range of motion is completed the left knee manipulation under anesthesia. Patient was awakened from anesthesia and taken to PACU in stable condition. Disposition: Patient taken to PACU in stable condition recovering well patient for pain control will receive a postoperative block per anesthesia department to polymerization helper in her aggressive therapy recommend ice as needed for pain and inflammation. We will follow-up in the orthopedic office in 2 weeks. All questions answered.
--- NOTE | 2023-06-20 07:29 | PM.PACU ---
PACU note Narrative: Pt is a 77-year-old female that just underwent left knee manipulation under anesthesia due to left knee arthrofibrosis. Pt transferred to PACU in stable condition. pt is awake and alert. pt can wiggle toes and plantarflex and dorsiflex foot. pt able to perform straight leg raise, Femoral nerve intact. Distal pulses are palpable toes are warm and well-perfused. Cap refill is normal and under 2 seconds. Sensation to foot is intact. Pain is controlled. Exam: awake Disposition: discharged
--- NOTE | 2023-06-20 07:42 | ANES.PROC ---
Anesthesia Procedures Procedure/Date: 06/20/23 adductor, pop plexus, genicular nerve blocks Nerve Block ^: Nerve Block 1: Main Anesthesia: other Time Out Performed: Yes Consent: from patient, risks and benefits reviewed and patient agrees to proceed Nerve block location: adductor canal, popliteal and other (genicular) Anesthesia monitors applied: pulse oximetry, EKG, BP cuff and oxygen Nerve block position: semi sitting Anesthetic Used: ropivicaine 0.5% Amount of anesthesia used (mL): 50 Ultrasound used to: recognize landmarks and visualize and ID femerol nerve Nerve Stimulator Used?: No Interscalene/Femoral BLK: 4 stimuplex 21 g needle used for position and inplane approach, visualize local anesthetic spread and no vascular puncture identified Injection: neg aspiration of heme (every 5 cc) Patient Tolerated Procedure: well and no complications Complications: none
--- NOTE | 2023-06-20 18:22 | ANE.PACU2 ---
Inpatient post-anesthesia follow up: Airway intact: Yes Vital signs: Temperature 97.0 F Pulse Rate 51 Respiratory Rate 17 Blood Pressure 114/43 Pulse Oximetry 93 Oxygen Delivery Me thod Room Air Oxygen Flow Rate 6 Fraction of Inspir ed Oxygen Hydration adequate: Yes Nausea and vomiting: No Pain level: 2 Mental status: Baseline
== END 2023-06-20 08:41 | disposition home or self-care (01) ==
PROVIDERS: PCP Nurse Practitioner Family; Visit Provider Student in an Organized Health Care Education/Training Program
PROC: (CPT 27570; principal; 2023-06-20 07:00)
DX: M24.662 Ankylosis, left knee (principal); I10 Essential (primary) hypertension; E11.9 Type 2 diabetes mellitus without complications; E66.01 Morbid (severe) obesity due to excess calories; Z68.33 Body mass index [BMI] 33.0-33.9, adult; Z79.82 Long term (current) use of aspirin; E78.5 Hyperlipidemia, unspecified
CPT/HCPCS: 27570; 36416; 73560; 82962; J0131; J1885; J2704; J2795; J3010; J7030

== ENCOUNTER 2023-07-01 06:00 | Outpatient (RCR) | payer MEDICARE, SELFPAY | END 2023-07-31 23:59 | disposition home or self-care (01) | LOC: TPT 06:00 | PROVIDERS: PCP Nurse Practitioner Family; Visit Provider Orthopaedic Surgery | DX: Z47.89 Encounter for other orthopedic aftercare (principal); Z96.652 Presence of left artificial knee joint; Y79.2 Prosthetic and other implants, materials and accessory orthopedic devices associated with adverse incidents | CPT/HCPCS: 97110; 97140 ==

== ENCOUNTER → 2023-07-03 09:12 | Outpatient (BNVA) | payer MEDICARE, SELFPAY | PROVIDERS: PCP Nurse Practitioner Family; Visit Provider Student in an Organized Health Care Education/Training Program | DX: T84.82XA Fibrosis due to internal orthopedic prosthetic devices, implants and grafts, initial encounter (principal); Z96.652 Presence of left artificial knee joint; Y79.2 Prosthetic and other implants, materials and accessory orthopedic devices associated with adverse incidents | CPT/HCPCS: 99213 ==

== ENCOUNTER 2023-08-01 06:00 | Outpatient (RCR) | payer MEDICARE, SELFPAY | END 2023-08-30 23:59 | disposition home or self-care (01) | LOC: TPT 06:00 | PROVIDERS: PCP Nurse Practitioner Family; Visit Provider Orthopaedic Surgery | DX: Z96.652 Presence of left artificial knee joint; Z47.1 Aftercare following joint replacement surgery | CPT/HCPCS: 97110; 97140 ==

== ENCOUNTER 2023-08-31 06:00 | Outpatient (RCR) | payer MEDICARE, SELFPAY | END 2023-09-30 23:59 | disposition home or self-care (01) | LOC: TPT 06:00 | PROVIDERS: PCP Nurse Practitioner Family; Visit Provider Orthopaedic Surgery | DX: Z96.652 Presence of left artificial knee joint; Z47.1 Aftercare following joint replacement surgery | CPT/HCPCS: 97110; 97140 ==

== ENCOUNTER → 2023-09-27 08:45 | Outpatient (BNVA) | payer MEDICARE, SELFPAY | PROVIDERS: PCP Nurse Practitioner Family; Visit Provider Nurse Practitioner Family | DX: E11.9 Type 2 diabetes mellitus without complications (principal); E55.9 Vitamin D deficiency, unspecified | CPT/HCPCS: 80053; 80061; 82043; 82306; 82607; 83036; 83735; 84443; 85025 ==

== ENCOUNTER 2023-10-01 06:00 | Outpatient (RCR) | payer MEDICARE, SELFPAY | END 2023-10-08 23:59 | disposition home or self-care (01) | LOC: TPT 06:00 | PROVIDERS: PCP Nurse Practitioner Family; Visit Provider Orthopaedic Surgery | DX: T84.82XA Fibrosis due to internal orthopedic prosthetic devices, implants and grafts, initial encounter (principal); Z96.652 Presence of left artificial knee joint; Y79.2 Prosthetic and other implants, materials and accessory orthopedic devices associated with adverse incidents | CPT/HCPCS: 97110; 97140 ==

== ENCOUNTER → 2023-10-02 09:37 | Outpatient (BNVA) | payer MEDICARE, SELFPAY | PROVIDERS: PCP Nurse Practitioner Family; Visit Provider Podiatrist Foot & Ankle Surgery | DX: E11.42 Type 2 diabetes mellitus with diabetic polyneuropathy (principal); M21.621 Bunionette of right foot; M21.622 Bunionette of left foot | CPT/HCPCS: 99213 ==

== ENCOUNTER → 2023-10-05 11:51 | Outpatient (BNVA) | payer MEDICARE, SELFPAY | PROVIDERS: PCP Nurse Practitioner Family; Visit Provider Student in an Organized Health Care Education/Training Program | DX: Z96.652 Presence of left artificial knee joint; M17.0 Bilateral primary osteoarthritis of knee | CPT/HCPCS: 73560; 73565; 99213 ==

== ENCOUNTER → 2023-11-29 08:29 | Outpatient (BNVA) | payer MEDICARE, MEDICAID, SELFPAY | PROVIDERS: PCP Nurse Practitioner Family; Visit Provider Student in an Organized Health Care Education/Training Program | DX: M17.11 Unilateral primary osteoarthritis, right knee (principal); Z96.652 Presence of left artificial knee joint | CPT/HCPCS: 99214 ==

== ENCOUNTER → 2023-12-06 11:08 | Outpatient (BNVA) | payer MEDICARE, MEDICAID, SELFPAY | PROVIDERS: PCP Nurse Practitioner Family; Visit Provider Nurse Practitioner Family | DX: R07.0 Pain in throat (principal) | CPT/HCPCS: 87071; 87880 ==

== ENCOUNTER 2024-01-03 08:59 | Outpatient (CLI) | payer MEDICARE, MEDICAID, SELFPAY ==
--- NOTE | 2024-01-03 09:30 | CT_ITS ---
WS: [id number] CT RIGHT KNEE, NONCONTRAST SILVIA TECHNIQUE: Noncontrast CT of the RIGHT knee to include the RIGHT hip and ankle. CLINICAL INFORMATION: M17.11 - Unilateral primary osteoarthritis, right knee COMPARISON: None. DLP: 920.[address] scans at [facility] use at least one of these dose optimization techniques: automated e xposure control; mA and/or kV adjustment per patient size (includes targeted exams where dose is matc hed to clinical indication); or iterative reconstruction. FINDINGS: Prior postoperative changes LEFT TKA. Advanced tricompartmental arthritis RIGHT knee worse in the med ial joint compartment. Hypertrophic patella. Small suprapatellar effusion. Degenerative arthritis sac roiliac joints. Moderate degenerative narrowing both hips. IMPRESSION: Images obtained for preoperative purposes.
== END 2024-01-03 09:00 | disposition home or self-care (01) ==
LOC: RAD 08:59
PROVIDERS: PCP Nurse Practitioner Family; Visit Provider Student in an Organized Health Care Education/Training Program
DX: M17.11 Unilateral primary osteoarthritis, right knee (principal); M25.661 Stiffness of right knee, not elsewhere classified
CPT/HCPCS: 73700

== ENCOUNTER → 2024-01-08 14:23 | Outpatient (BNVA) | payer MEDICARE, MEDICAID, SELFPAY | PROVIDERS: PCP Nurse Practitioner Family; Visit Provider Family Medicine | DX: Z01.818 Encounter for other preprocedural examination (principal) | CPT/HCPCS: 80053; 81003; 85025; 87086; 93005 ==

== ENCOUNTER 2024-01-14 13:20 | Observation (INO) | payer MEDICARE, MEDICAID, SELFPAY ==
[2024-01-14] VITALS (12 sets, daily range): BP systolic 109–157; BP diastolic 53–99; PULSE 62–71; RESP 14–19; TEMP 36.5–37.3; O2SAT 92–96; BMI 33.7
--- NOTE | 2024-01-14 09:43 | W.PM.OPSFHP ---
Same Day Surgery H&P Indication for Procedure/HPI DATE OF PROCEDURE: January 14, 2024 CHIEF COMPLAINT/INDICATIONFOR SURGICAL PROCEDURE: Right knee degenerative joint disease PREOP DIAGNOSIS: Right knee degenerative joint disease PLANNED PROCEDURE: Operation Date: 01/14/24 11:00 Proposed Procedures p Drew Robot Total Knee Arthroplasty(Right) - Duane Dixon DO Medications/Allergies* Home Medications Medication Instructions Recorded Confirmed Type aspirin 81 mg capsule 81 mg PO DAILY 01/05/23 01/11/24 History celecoxib 200 mg capsule 200 mg PO DAILY 01/11/24 01/11/24 History Allergies/Adverse Reactions Allergy/AdvReac Type Severity Reaction Status Date / Time Penicillins Allergy Intermediate rash Verified 01/11/24 08:14 Pertinent History/Comorbid Conditions* Medical History (Updated 06/04/23 @ 16:25 by Duane Dixon DO) Enrolled in chronic care management Anxiety and depression Tremor Hyperlipidemia Osteoarthritis Diabetes mellitus GERD (gastroesophageal reflux disease) Hypertension Surgical History (Updated 01/16/23 @ 07:25 by Patricio Anderson MD) Hx of colonoscopy (~2013) Family History (Updated 11/28/19 @ 13:35 by Rafaela Agustin LPN, RT) Diabetes Family/Other Heart disease Family/Other Cancer Family/Other Social History Smoking and tobacco/nicotine status: never used tobacco/nicotine Second hand smoke exposure: No Alcohol intake: never Substance/Drug Use: never Caregiver/support person: Yes (family) Lives independently: Yes Household members: none Housing: House Marital status: service: No Current occupational status: employed Current occupation: [employer] Current gender identity: Female Special hay needs: No Agree to transfusion: Yes Pertinent Exam Findings alert, oriented x 3, operative site marked and procedure specific exam findings Examination of the right knee demonstrates diffuse tenderness palpation with a 10 degree varus deformity. Please refer to detailed orthopedic office assessment on office note dating back to 11/29/2023 for detailed orthopedic examination: Right knee examination: Examination of the right knee significant decreased knee range of motion of roughly 5 to 10 degree flexion contracture and able to flex only to roughly 105 degrees severe crepitus noted on knee range of motion 5 to 10 degree varus deformity appreciated patellar crepitus on mobilization no evidence of patellar instability stable varus valgus stress. Gross motor and sensory intact distally. Mild palpable effusion. Recommendations Surgery/Procedure today Other Plans: Plan to proceed to the OR today for right total knee arthroplasty?Drew robotic assisted. Patient understands the ins and outs of procedure the risk benefits complication alternatives of surgery. Understanding risk of surgery she elects to proceed all questions answered at this time. She is cleared to preoperative clearance process. Coding Level of Care Code Acute Code for Chg Fwd
[2024-01-14] MEDS: sodium chloride 0.9% 1,000 ML 30 ML IV (09:58)
[2024-01-14] MEDS: ketorolac 30 mg/mL INJ IVP (09:58)
[2024-01-14] MEDS: lactated ringers 500 ML IV (09:58)
[2024-01-14] MEDS: acetaminophen 1,000 MG/100 ML PIGGYBACK 400 MG IV ×2 (09:58→18:06)
--- NOTE | 2024-01-14 10:00 | ANES.PROC ---
Anesthesia Procedures Procedure/Date: 01/14/24 Nerve Block ^: Nerve Block 1: Main Anesthesia: spinal anesthesia block Time Out Performed: Yes Consent: requested by attending/covering physician, from patient, from other, risks and benefits reviewed and patient agrees to proceed Nerve block location: adductor canal (R) Anesthesia monitors applied: pulse oximetry, EKG, BP cuff and oxygen Nerve block position: supine Anesthetic Used: ropivicaine 0.5% (30 ml) and with decadron (4 mg) Ultrasound used to: recognize landmarks and visualize and ID femerol nerve Nerve Stimulator Used?: No Interscalene/Femoral BLK: 4 stimuplex 21 g needle used for position and inplane approach, visualize local anesthetic spread and no vascular puncture identified Injection: neg aspiration of heme Patient Tolerated Procedure: well and no complications Complications: none
--- NOTE | 2024-01-14 10:00 | P.ANESASSM_ITS ---
Pre-Anesthetic Assessment Height/Weight: Height 1.73 m Weight 100.698 kg Temp Pulse Resp BP Pulse Ox O2 Del Method 98.0 F 68 18 152/81 96 Room Air 01/14/24 09:36 01/14/24 09:36 01/14/24 09:36 01/14/24 09:36 01/14/24 09:36 01/14/24 09:36 Preop Diagnosis: Right knee degenerative joint disease Operation Date: 01/14/24 11:00 Proposed Procedures p Drew Robot Total Knee Arthroplasty(Right) - Duane Dixon DO Familial anesthetic complications: None Was Beta Juan Ramon taken within 24 hours: Yes Was Clonidine taken within 24 hours: N/A Last intake: Intake Last Liquid Date 01/13/24 Last Liquid Time 17:00 Last Solid Date 01/13/24 Last Solid Time 16:30 Social No alcohol and No tobacco Exam alert, oriented x 3, clear to auscultation bilaterally and regular rate & rhythm Airway Mallampati: Class II Dentition: full CV/HEM Hypertension Metabolic Diabetes Mellitus, Hyperlipidemia and Morbid Obesity Anesthetic Plan ASA status: 3 Anesthesia: Regional (specify below) Risk of > 500 ml blood loss (7ml/kg in children): No Medications/Allergies Home Medications Medication Instructions Recorded Confirmed Last Taken Type fluticasone propionate 50 2 spray intranasal DAILY #9.9 mL 05/24/22 01/11/24 01/11/24 Rx mcg/actuation nasal spray,suspension (Flonase Allergy Relief) blood sugar diagnostic (Blood #100 ea 10/09/22 12/13/23 Unknown Rx Glucose Test strips) blood-glucose meter (Blood Glucose #1 ea 10/09/22 12/13/23 Unknown Rx Monitoring kit) blood sugar diagnostic (OneTouch #100 ea 11/15/22 12/13/23 Unknown Rx Verio test strips) aspirin 81 mg capsule 81 mg PO DAILY 01/05/23 01/11/24 01/09/24 History diabetic shoes with 3 sets of #1 ea 04/30/23 12/13/23 Unknown Rx insoles cetirizine 10 mg tablet 10 mg PO DAILY #90 tabs 09/10/23 01/14/24 01/13/24 Rx dapagliflozin propanediol 10 mg See Rx Instructions .Route 09/13/23 01/11/24 01/10/24 Rx tablet (Farxiga) .COMPLEX #30 tabs citalopram 10 mg tablet 10 mg PO DAILY #90 tabs 09/27/23 01/14/24 01/13/24 Rx irbesartan 150 mg tablet 150 mg PO DAILY #90 tabs 09/27/23 01/14/24 01/14/24 Rx oxybutynin chloride 10 mg 10 mg PO DAILY #90 tabs 09/27/23 01/11/24 01/11/24 Rx tablet,extended release 24 hr primidone 50 mg tablet 100 mg (2 x 50 mg) PO TID #30 tabs 09/27/23 01/14/24 01/13/24 Rx atorvastatin 20 mg tablet 20 mg PO DAILY #100 tabs 11/26/23 01/14/24 01/13/24 Rx metoprolol tartrate 25 mg tablet 25 mg PO BID #200 tabs 11/26/23 01/14/24 01/14/24 Rx verapamil 120 mg tablet,extended 120 mg PO DAILY #100 tabs 11/26/23 01/14/24 01/13/24 Rx release celecoxib 200 mg capsule 200 mg PO DAILY 01/11/24 01/11/24 01/09/24 History Allergies Allergy/AdvReac Type Severity Reaction Status Date / Time Penicillins Allergy Intermediate rash Verified 01/11/24 08:14 Current Medications Generic Name Dose Route Start Last Admin Trade Name Freq PRN Reason Stop Dose Admin Sodium Chloride 1,000 mls @ 30 mls/hr 01/14/24 09:30 01/14/24 09:58 Sodium Chloride 0.9% IV 01/15/24 09:29 30 mls/hr .Q24H BERENICE Administration PFSH Anesthesia Medical History Enrolled in chronic care management Anxiety and depression Tremor Hyperlipidemia Osteoarthritis Diabetes mellitus GERD (gastroesophageal reflux disease) Hypertension Surgical History Hx of colonoscopy (~2013) Family History Family/Other Cancer Diabetes Heart disease Social History Smoking and tobacco/nicotine status: never used tobacco/nicotine Second hand smoke exposure: No Alcohol intake: never Substance/Drug Use: never Caregiver/support person: Yes (family) Lives independently: Yes Household members: none Housing: House Marital status: service: No Current occupational status: employed Current occupation: [employer] Current gender identity: Female Special hay needs: No Agree to transfusion: Yes Data Anesthesia 01/14/24 09:50 01/14/24 09:50 Short CBC 01/14/24 Range/Units 09:50 WBC 5.36 (3.29-11.43) 10^3/uL Hgb 14.50 (11.27-16.99) g/dL Hct 43.3 (36-47) % MCV 94.5 (85-98) fl Plt Count 183 (157-399) 10^3/cmm Neut % (Auto) 61.7 % Neut # (Auto) 3.31 (1.8-7.7) 10^3/uL BMP 01/14/24 09:50 Sodium Cancelled Potassium Cancelled Chloride Cancelled Carbon Dioxide Cancelled BUN Cancelled Creatinine Cancelled Glucose Cancelled Calcium Cancelled Blood Bank 01/14/24 09:50 Blood Type O Positive Rho(D) Type Rh positive Antibody Screen Negative Cardiac Studies: 2 No Data to Display
[2024-01-14 10:15] LABS: Glucose Point of Care 119 mg/dL (70-110)
[2024-01-14] MEDS: ceFAZolin 2,000 MG in sodium chloride 0.9% (plus) 50 ML 100 MG IV ×2 (10:21→21:20)
[2024-01-14 10:29] LABS: Basophils % 0.2 %; Eosinophils % 0.6 %; Hematocrit 43.3 % (36-47); Lymphocytes # 1.5 10^3/uL (0.8-4.8); Lymphocytes % 27.2 %; Mean Corpuscular HGB Conc 33.5 g/dL (30-55); Mean Corpuscular Hemoglobin 31.7 pg (27-33); Mean Corpuscular Volume 94.5 fl (85-98); Mean Platelet Volume 11.1 fL (7.4-10.4); Monocytes # 0.5 10^3/uL (0.2-0.9); Monocytes % 9.9 %; Neutrophils # 3.31 10^3/uL (1.8-7.7); Neutrophils % 61.7 %; Nucleated Red Blood Cells % 0 %; Platelet Count 183 10^3/cmm (157-399); Red Blood Count 4.58 10^6/uL (3.85-5.65); Red Cell Distribution Width 13.2 % (12.1-15.1); White Blood Count 5.36 10^3/uL (3.29-11.43)
[2024-01-14] MEDS: tranexamic acid 1,000 mg/10mL SDV 1000 MG (10:56)
[2024-01-14] MEDS: ROPivacaine 0.2% Premix 100 mL 200 MG INTRA-ARTI (11:22)
[2024-01-14] MEDS: ketorolac 30 mg/mL INJ XX (11:22)
[2024-01-14] MEDS: tranexamic acid 1,000 mg/10mL SDV 1000 MG IRRIGATION (11:22)
[2024-01-14] MEDS: EPINEPHrine 1 mg/mL INJ XX (11:22)
[2024-01-14] MEDS: vancomycin 1,000 MG SDV 1000 MG INTRA-ARTI (12:34)
--- NOTE | 2024-01-14 13:28 | W.PM.BPON ---
Date of Procedure: 01/14/2024 Surgeon: Duane Dixon DO Procurement Specialist(s): None Procedure(s) performed: Right total knee arthroplasty?Drew robotic assisted Findings of the procedure(s): Patient underwent right total knee arthroplasty without any issues or complications, procedure well taken to PACU in stable condition. Estimated blood loss: 25 mL Specimen(s) removed: Tibia femur and patellar bone cuts removed Post-operative diagnosis: Right knee degenerative joint disease
--- NOTE | 2024-01-14 13:30 | P.OP_ITS ---
Operative Report Date of procedure: January 14, 2024 Surgeon: Duane Dixon DO Procedure: Preoperative diagnosis: Right knee degenerative joint disease Post-op diagnosis: Same Procedure done: Right total knee arthroplasty, cemented?robotic assisted Drew Implants: Winnie triathlon size 5 femur CR cemented?Right Winnie triathlon size? 4 tibia universal baseplate cemented Winnie triathlon symmetric patella size 33 mm [place] triathlon polyethylene 10mm Surgeon: Duane Dixon DO Estimated blood?loss: 25 mL Tourniquet 77minutes IV fluids: 800 mL Urine output: 150 mL Complications: None Condition: stable Disposition: floor Brief History: Patient is a 78-year-old female with with chronic?Right knee degenerative joint disease.? Patient has been worked up in the outpatient setting in the orthopedic office at this point time through shared decision making given? [id number] arthritis as well as failed conservative treatment, and pt would?like to proceed with a?Right total knee arthroplasty.? Through shared decision making elected to proceed with surgical intervention for?Right total knee arthroplasty.? We talked about continued conservative treatment and surgical intervention as far as the risk benefits complications alternatives surgical and nonsurgical treatment options.? At this point time understanding patient risks with surgery pt agrees to proceed with surgical intervention.? Once again? risk with surgery include but are not?limited to make it better make it worse blood clot, heart attack, stroke, on the table, infection, injury to nerves or vessels, persistent pain, arthrofibrosis, implant failure.? Understanding these risks patient agrees to proceed with surgical intervention consent was obtained in the office.? All questions answered. Procedure: Patient was seen and evaluated in the preoperative holding area.? Consent was reviewed and signed with patient with plan for?Right total knee arthroplasty.? All questions answered.? Correct extremity marked.? Patient seen and evaluated by the anesthesia department and once cleared for surgery was taken back to the operative suite.? Patient was placed into a supine position on the OR table.? All bony prominences were well-padded.? Patient was appropriately secured to the bed.? Patient underwent anesthesia per the anesthesia department.? Patient received spinal anesthesia and? Bangura catheter was placed.? A nonsterile tourniquet was applied to the?Right thigh.? At this point in time a final timeout performed.? Patient received appropriate preoperative antibiotics and TXA. Next the?Right?lower extremity was then prepped and draped in standard orthopedic fashion. Esmarch tourniquet was used exsanguinate the?Right?lower extremity.? Tourniquet was insufflated to 250 mmHg. A standard anterior incision was made over midline of the knee.? Sharp scalpel excision through skin and subcutaneous tissue full-thickness skin flaps were made.? Fascia was elevated off of the extensor retinaculum was stable with medial parapatellar arthrotomy was then made.? The performed standard sequential releases..? Immediately on entry into the joint patient was found to have severe eburnated bone and tricompartmental arthritic changes noted.? With significant osteophyte formation.? Next the the patella was then stuffed and the knee was then flexed.?? Clotilde was placed superiorly around the anterior aspect of the femur this was freed of synovium and I subsequently then placed by 2 femur pins to establish my femur arrays for the Drew robot.? These were then placed bicortically and? femur array was then appropriately secured with appropriate visualization.? Next attention was turned towards the tibial rays.? These were then drilled sequentially bicortically in parallel fashion and intraincisional.? I then placed my guide as well as my tibial array on in place.? This was appropriately secured and had excellent visualization with the Drew robot.? Next the tibial checkpoint as well as femur checkpoint were then placed.? At this point time I then subsequently established my head center as well as my medial?lateral malleoli as well as my checkpoints.? Next utilizing standard Drew technology I then mapped out the appropriate points and confirmation points around the femur as well as the tibia in standard fashion.? Once this was then done I then removed all osteophytes in preparation for dynamic testing.? All osteophytes were removed as well as I removed the ACL and the PCL was excised due to its significant tearing and degeneration noted.? At this point time the knee was brought into full extension and we performed our standard evaluation of our gap balancing stressing his?ligaments and extension as well as flexion appropriate adjustments were made to have appropriate gap balancing in both flexion and extension.? This plan for final counts.? We get a preoperative plan evaluating our implants which was a size 5 femur and a size 4 tibia.? Next we brought in the Drew robot and sequentially made our femur cuts.? All excess bony cuts were then removed.? Finally we made our tibial cut.? Once this was done a standard PCL retractor was then placed into this position I excised the medial and?lateral meniscus.? The tibial cut was then subsequently removed all excess bony debris was removed.? I then utilized a?lamina strainer mill operator and remove the posterior osteophytes.? At this point time sized the tibia and confirmed this was a size 4.? I utilized our blunt probe to establish rotation of tibial implant.? Once this was done I then placed my tibia size 4 trial in appropriate position and then subsequently placed tibial pins to hold this into place placed a size 10 mm poly as well as a size 5 femur which was appropriately impacted in place knee was then subsequently brought into extension. Trials were then assessed,? this was stable with varus valgus stress in extension as well as had symmetrical translation when brought into flexion demonstrating symmetrical gaps. I had excellent balance gaps in flexion and extension with varus and valgus stresses.? At this point I was satisfied with these implants these were then verified and opened on the back table size 4 tibia, size5 femur,? size 10 mm polythickness.? We did confirm appropriate gap balancing and stresses as well as alignment utilizing? Drew and were satisfied with this plan.? ?At this point time with my trials in place I then towel clip the patella everted this made appropriate measurements subsequently utilizing freehand technique performed by patellar resurfacing this was confirmed to be appropriate resection and subsequently sized to be a 33 mm symmetric.? My drill peg guides were then clamped and appropriate position and appropriate position in the patella for appropriate tracking and parallel with the joint.? Pegs were drilled trial implant was placed and the knee was then subsequently ranged and found to have excellent patellar tracking.? Femur pegs were then drilled.? Satisfied with our tibial placement rotation I then utilized the keel punch and prepped the tibia.? At this point time all of our trial implants were removed.? All checkpoints as well as guidepins and arrays were removed and appropriate counts made.? The wound bed? was thoroughly irrigated and dried and prepped for cementation.? Cement was mixed on the back table.? Once cement was ready this was then covered onto the tibia and the tibial baseplate was then impacted and all excess cement was removed.? Next the polyethylene was then impacted into place on the tibial baseplate.? Next cement was placed onto the femur as well as under the femur implants and impacted in to place and all excess cement was extruded and removed.? Knee was taken into full extension? to clear all excess cement was removed.? Warm saline was placed over the joint.? I then towel clip patella and dried for cementation. cemented the patella into place.? This was all clamped and the cement was allowed to cure.? Thorough irrigation performed with pulse?lavage.? I then placed my periarticular injection while the cement was curing.? Once cured the knee was taken through range of motion and had excellent stability and gaps were balanced in flexion and extension.? Tourniquet was then deflated. hemostasis satisfactory with electrocautery.? Next I then subsequently closed the capsule with Ethibond suture as well as a running strata fix suture.? Knee was then taken through range of motion.? Next the skin was then closed in?layered fashion of running stratifix sutures of deep and subcutenous tissue and skin.? ?closed in flexion and Prineo glue was then placed over the incision this allowed to cure.? Incision was covered with albino, with ABDs soft roll and Salazar wrap.? Patient was then awakened from anesthesia and taken to PACU in stable condition. Disposition: Patient taken to PACU in stable condition will be admitted to the floor for pain control PT/OT weight-bear as tolerated?Right?lower extremity dressing changes as needed, DVT prophylaxis. Pain control. Patient will receive appropriate postoperative antibiotics. patient will be seen today by the internal medicine team for medical management.? Patient will follow up with the office in 2 weeks.? Patient understands agrees with current plan.? All questions answered.
--- NOTE | 2024-01-14 13:35 | XR_ITS ---
WS: [id number] Exam: XR knee RT 3V* [id number] Date/Time of Exam: 01/14/2024 1:35 PM Reason For Exam: Status post right TKA A total knee prosthesis is noted in satisfactory position. Postoperative changes in the adjacent soft tissues. Old healed fracture of the upper fibula. IMPRESSION: 1. RIGHT total knee replacement in satisfactory position.
--- NOTE | 2024-01-14 13:45 | ANE.PACU2 ---
Inpatient post-anesthesia follow up: Airway intact: Yes Vital signs: Temperature 99.0 F Pulse Rate 65 Respiratory Rate 16 Blood Pressure 157/99 Pulse Oximetry 93 Oxygen Delivery Me thod Room Air Oxygen Flow Rate Fraction of Inspir ed Oxygen Hydration adequate: Yes Nausea and vomiting: No Pain level: 1 Mental status: Baseline
[2024-01-14] MEDS: lactated ringers 1,000 ML 100 ML IV ×2 (14:36→23:55)
[2024-01-14] MEDS: ketorolac 30 mg/mL INJ 15 MG IVP (14:36)
--- NOTE | 2024-01-14 14:47 | P.CONIM_ITS ---
Providers/Reason For Consult 2 Consulting Physician/Specialty*: Hospitalist medicine Reason for Consult*: management of chronic medical Attending Physician: Duane Dixon DO Primary Care Provider: ILAN Peralta History of Present Illness History of Present Illness Blanca Jaime is a 78 year old female who was seen today at the request of Dr. Dixon for management of chronic illnesses while inpatient. She was admitted today following TKA of the right knee. Patient reports having a history of TIIDM, HTN, Dyslipidemia, urinary incontinence, essential tremor, and GERD. Her most recent A1c was 6.0, which is well controlled. She takes Farxiga for her diabetes. She is also on metoprolol and irbesartan for HTN, and atorvastatin for cholesterol. Her BP is currently 144/75. Review of Systems 2 General: Reports: 10 or more systems reviewed and unremarkable except in HPI and below Medications/Allergies Home Medications Medication Instructions Recorded Confirmed Last Taken Type fluticasone propionate 50 2 spray intranasal DAILY #9.9 mL 05/24/22 01/11/24 01/11/24 Rx mcg/actuation nasal spray,suspension (Flonase Allergy Relief) blood sugar diagnostic (Blood #100 ea 10/09/22 12/13/23 Unknown Rx Glucose Test strips) blood-glucose meter (Blood Glucose #1 ea 10/09/22 12/13/23 Unknown Rx Monitoring kit) blood sugar diagnostic (OneTouch #100 ea 11/15/22 12/13/23 Unknown Rx Verio test strips) aspirin 81 mg capsule 81 mg PO DAILY 01/05/23 01/11/24 01/09/24 History diabetic shoes with 3 sets of #1 ea 04/30/23 12/13/23 Unknown Rx insoles cetirizine 10 mg tablet 10 mg PO DAILY #90 tabs 09/10/23 01/14/24 01/13/24 Rx dapagliflozin propanediol 10 mg See Rx Instructions .Route 09/13/23 01/11/24 01/10/24 Rx tablet (Farxiga) .COMPLEX #30 tabs citalopram 10 mg tablet 10 mg PO DAILY #90 tabs 09/27/23 01/14/24 01/13/24 Rx irbesartan 150 mg tablet 150 mg PO DAILY #90 tabs 09/27/23 01/14/24 01/14/24 Rx oxybutynin chloride 10 mg 10 mg PO DAILY #90 tabs 09/27/23 01/11/24 01/11/24 Rx tablet,extended release 24 hr primidone 50 mg tablet 100 mg (2 x 50 mg) PO TID #30 tabs 09/27/23 01/14/24 01/13/24 Rx atorvastatin 20 mg tablet 20 mg PO DAILY #100 tabs 11/26/23 01/14/24 01/13/24 Rx metoprolol tartrate 25 mg tablet 25 mg PO BID #200 tabs 11/26/23 01/14/24 01/14/24 Rx verapamil 120 mg tablet,extended 120 mg PO DAILY #100 tabs 11/26/23 01/14/24 01/13/24 Rx release celecoxib 200 mg capsule 200 mg PO DAILY 01/11/24 01/11/24 01/09/24 History Allergies Allergy/AdvReac Type Severity Reaction Status Date / Time Penicillins Allergy Intermediate rash Verified 01/11/24 08:14 Current Medications Generic Name Dose Route Start Last Admin Trade Name Freq PRN Reason Stop Dose Admin Lactated Ringer's 1,000 mls @ 100 mls/hr 01/14/24 14:02 01/14/24 14:36 Lactated Ringers IV 100 mls/hr .Q10H BERENICE Administration Ketorolac Tromethamine 15 mg 01/14/24 14:02 01/14/24 14:36 Ketorolac 30 Mg/Ml Inj IVP 15 mg Q6H PRN Administration MODERATE TO SEVERE PAIN PFSH Acute 2 PFSH: Medical History (Updated 01/14/24 @ 19:44 by Marcin Lucero DO) Enrolled in chronic care management Anxiety and depression Tremor Hyperlipidemia Osteoarthritis Diabetes mellitus GERD (gastroesophageal reflux disease) Hypertension Surgical History (Updated 01/14/24 @ 19:44 by Marcin Lucero DO) Hx of colonoscopy (~2013) Family History Family/Other Cancer Diabetes Heart disease Social History Smoking and tobacco/nicotine status: never used tobacco/nicotine Second hand smoke exposure: No Alcohol intake: never Substance/Drug Use: never Caregiver/support person: Yes (family) Lives independently: Yes Household members: none Housing: House Marital status: service: No Current occupational status: employed Current occupation: [employer] Current gender identity: Female Special hay needs: No Agree to transfusion: Yes Vitals/I&O/Wt Last Vital Signs Temp 99.0 F 01/14/24 13:36 Pulse 69 01/14/24 13:36 Resp 17 01/14/24 13:36 BP 157/99 01/14/24 13:36 Pulse Ox 95 01/14/24 13:36 O2 Del Method Room Air 01/14/24 13:36 01/13/24 01/14/24 01/14/24 22:59 06:59 14:59 Intake Total 884 / 884 Output Total 175 / 175 Balance 709 / 709 Weight last 48 hrs Weight 222 lb Physical Exam 2 Narrative: General: Cooperative patient in no apparent distress. Well developed. HEENT: Normocephalic, Atraumatic. External ears normal. Nasal passages patent without drainage. MMM. Heart: RRR. Resp: LCTA. No respiratory distress, no use of accessory muscles. Abd: Soft, non-tender. Non-distended. Extremities: No edema. Skin: No rash or lesions on exposed areas. Neuro: No focal motor or sensory loss. MSK: S/P R TKA with dressing in place. Urinary Catheter Management: Bangura: Cath Placed During This Visit: yes Urinary Catheter Date of Insertion: 01/14/24 Urinary Catheter Time of Insertion: 11:00 Data 01/14/24 09:50 01/14/24 09:50 A&P Assessment and plan (1) Status post total right knee replacement: (2) Hypertension: Qualifiers: Hypertension type: essential hypertension Qualified Code(s): I10 - Essential (primary) hypertension (3) Hyperlipidemia: Qualifiers: Hyperlipidemia type: unspecified Qualified Code(s): E78.5 - Hyperlipidemia, unspecified (4) Diabetes mellitus: Qualifiers: Diabetes mellitus type: type 2 Diabetes mellitus senior living insulin use: without senior living use Diabetes mellitus complication status: without complication Qualified Code(s): E11.9 - Type 2 diabetes mellitus without complications (5) Overactive bladder: (6) Anxiety and depression: (7) Tremor: Plan Blanca Jaime is a 78 year old female w/ PMH of HTN, TIIDM, HLD, essential tremor, anxiety and depression, overactive bladder, admitted for R TKA. Admitted to [facility]. Ortho is primary, with consult to medicine for assistance with chronic medical. Will check A1c, lipid panel in a.m. Will restart home medications. Vitals are stable. Continue regular checks. Plan is to start Eliquis for VTE PPx. Will hold on Celebrex until ok with ortho to restart. She will be receiving therapy during her recovery. She does plan to discharge home when appropriate. Thank you for allowing our participation in the care of this patient. Consult Attestations 2 Medical Necessity Statement: per primary. Coding Level of Care Code Acute Code for Chg Fwd Low MDM includes number and complexity of problems actively addressed during encounter, amount and/or complexity of data reviewed/ordered and described risk of complication, morbidity or mortality of management as documented Diagnoses Status post total right knee replacement Z96.651 Essential hypertension I10 Hypertension type: essential hypertension Hyperlipidemia, unspecified hyperlipidemia type E78.5 Hyperlipidemia type: unspecified Type 2 diabetes mellitus without complication, without long-term current use of insulin E11.9 Diabetes mellitus type: type 2 Diabetes mellitus senior living insulin use: without 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
[2024-01-14 16:40] LABS: Glucose Point of Care 134 mg/dL (70-110)
[2024-01-14] MEDS: tranexamic acid 1,000 MG/100 ML PREMIX 600 MG IV (17:25)
[2024-01-14] MEDS: calcium carb-vit d 600mg/400unit 1 Tablet 1 EACH PO (17:33)
[2024-01-14] MEDS: chlorhexidine gluconate 0.12% Btl 473 mL 30 ML MUCOUS MEM (17:33)
[2024-01-14] MEDS: docusate sodium 100 mg Capsule PO (17:33)
[2024-01-14] MEDS: iron polysaccharide complex 150 mg Capsule PO (17:33)
[2024-01-14] MEDS: mupirocin oint 22 gm 1 APPLIC NASAL (17:33)
[2024-01-14] MEDS: oxyCODONE 5 mg IR Tab/Cap PO (21:21)
[2024-01-14] MEDS: primidone 50 mg Tablet 100 MG PO (21:27)
[2024-01-14 21:29] LABS: Chol HDL Ratio 2.71 mg/dL (0.0-4.40); Cholesterol 103 mg/dL (0-200); HDL Cholesterol 38 mg/dL (60-100); LDL Cholesterol Calculated 38 mg/dL (50-129); Triglycerides 136 mg/dL (0-150)
[2024-01-15] VITALS (9 sets, daily range): BP systolic 131–170; BP diastolic 62–71; PULSE 71–80; RESP 16–20; TEMP 36.3–37.1; O2SAT 92–95
[2024-01-15] MEDS: acetaminophen 1,000 MG/100 ML PIGGYBACK 400 MG IV ×2 (01:24→11:13)
[2024-01-15] MEDS: oxyCODONE 5 mg IR Tab/Cap PO ×3 (01:24→11:16)
[2024-01-15] MEDS: ceFAZolin 2,000 MG in sodium chloride 0.9% (plus) 50 ML 100 MG IV ×2 (04:24→12:57)
[2024-01-15 05:24] LABS: Basophils % 0.1 %; Eosinophils % 0.1 %; Hematocrit 34.5 % (36-47); Lymphocytes # 1.6 10^3/uL (0.8-4.8); Lymphocytes % 15.7 %; Mean Corpuscular HGB Conc 32.8 g/dL (30-55); Mean Corpuscular Hemoglobin 31.1 pg (27-33); Monocytes # 0.7 10^3/uL (0.2-0.9); Monocytes % 7.4 %; Neutrophils # 7.57 10^3/uL (1.8-7.7); Neutrophils % 76.4 %; Nucleated Red Blood Cells % 0 %; Platelet Count 140 10^3/cmm (157-399); Red Blood Count 3.63 10^6/uL (3.85-5.65); Red Cell Distribution Width 13.2 % (12.1-15.1); White Blood Count 9.91 10^3/uL (3.29-11.43)
[2024-01-15 05:52] LABS: Anion Gap 14.2 (5-19); Blood Urea Nitrogen 26 mg/dL (8-23); Carbon Dioxide 26 mmol/L (22-29); Chloride 105 mmol/L (98-107); Creatinine Clr Calc Pharmacy 78.2355; Glucose 123 mg/dL (65-115); Osmolality Calculated 298 mOsm/kg (285-295); Potassium 4.2 mmol/L (3.5-5.1); Sodium 141 mmol/L (136-145)
[2024-01-15 05:53] LABS: Estmated Average Glucose 126
[2024-01-15 07:46] LABS: Glucose Point of Care 146 mg/dL (70-110)
--- NOTE | 2024-01-15 08:20 | PC.PHAR ---
MEDICATIONS CONFIRMED BY RN-VERIFIED DRUG, STRENGTH AND DOSAGE 01/15/24.
[2024-01-15] MEDS: calcium carb-vit d 600mg/400unit 1 Tablet 1 EACH PO (09:36)
[2024-01-15] MEDS: aspirin 81 mg EC Tablet PO (09:36)
[2024-01-15] MEDS: metoprolol tartrate 25 mg Tablet PO (09:36)
[2024-01-15] MEDS: verapamil ER 240 mg Tablet 120 MG PO (09:36)
[2024-01-15] MEDS: citalopram 20 mg Tablet 10 MG PO (09:36)
[2024-01-15] MEDS: losartan 50 mg Tablet PO (09:37)
[2024-01-15] MEDS: docusate sodium 100 mg Capsule PO (09:37)
[2024-01-15] MEDS: primidone 50 mg Tablet 100 MG PO (09:37)
[2024-01-15] MEDS: apixaban 5 mg Tablet 2.5 MG PO (09:37)
[2024-01-15] MEDS: atorvastatin 40 mg Tablet 20 MG PO (09:37)
[2024-01-15] MEDS: iron polysaccharide complex 150 mg Capsule PO (09:37)
[2024-01-15] MEDS: multivitamin therapeutic Tablet 1 TAB PO (09:37)
[2024-01-15] MEDS: oxybutynin chloride XL 5 MG TABLET 10 MG PO (09:37)
--- NOTE | 2024-01-15 09:37 | PC.CHAP ---
Pastoral Care Encounter/Spiritual Assessment Type of Contact [] Declined plastics tooling engineer visit [] Patient/Family/Request visit [] Outpatient visit [] Follow-up visit [] Physician referral [] Code/Alert [x] Routine visit [] Staff referral [] Actively dying [] Patient sleeping [x] Family support [] [] Out of room [] Palliative care [] [] Receiving care in room [] Pre-surgical visit [] Trauma [] Long length of stay [] ICU visit [] Other: Relational/Emotional Strength [x] Patient feels connected with others/family/visitors/staff [] Distress [] Loneliness/isolation [] Abandonment Spirituality of Patient [x] Person of [place] [] Attends Synagogue of their [place] [x] Believes in Prayer [] Reads Bible or Quaker materials [] There are Spiritual issues to be addressed Division Engineer Interventions [x] Prayer [x] Active listening [x] Non-anxious presence [x] Spiritual/emotional support [] Crisis/trauma care [] Spiritual counseling [] Bereavement support [] Provided bereavement packet [] Provided Bible/devotional materials [] Provided toy/stuffed animal, coloring book to patient or family member [] Provided Communion [] Anointing/[place] [] Salvation [x] Completed spiritual assessment [] Other: Impact on Illness or Injury [] Angry [] Fearful [] Anxious [] Often cries [] Exhaustion [] Unable to work [] Unable to attend protestant [] Unable to walk/stand [] Unable to read [] Unable to drive [] Unable to eat/drink [] Unable to sleep [] Unable to be with family [] Patient intubated [] Other: Summary Time spent with patient 5 min
[2024-01-15] MEDS: mupirocin oint 22 gm 1 APPLIC NASAL (09:38)
[2024-01-15] MEDS: chlorhexidine gluconate 0.12% Btl 473 mL 30 ML MUCOUS MEM (09:38)
[2024-01-15] MEDS: ketorolac 30 mg/mL INJ 15 MG IVP (10:23)
[2024-01-15] MEDS: lactated ringers 1,000 ML 100 ML IV (11:14)
[2024-01-15 11:20] LABS: Glucose Point of Care 182 mg/dL (70-110)
--- NOTE | 2024-01-15 12:37 | P.DS_ITS ---
Discharge Providers Date of Admission: 01/14/24 13:20 Date of Discharge: January 15, 2024 Attending Provider at Admission: Duane Dixon DO Attending Provider at Discharge: Duane Dixon DO Consults: Dr. Meeks?hospitalist Primary Care Provider: ILAN Peralta Diagnoses at Discharge Discharge Diagnosis (1) Status post total right knee replacement: Status: Acute (2) Hypertension: Status: Acute Qualifiers: Hypertension type: essential hypertension Qualified Code(s): I10 - Essential (primary) hypertension (3) Hyperlipidemia: Status: Acute Qualifiers: Hyperlipidemia type: unspecified Qualified Code(s): E78.5 - Hyperlipidemia, unspecified (4) Diabetes mellitus: Status: Acute Qualifiers: Diabetes mellitus complication status: without complication Diabetes mellitus terminal worker insulin use: without penitentiary use Diabetes mellitus type: type 2 Qualified Code(s): E11.9 - Type 2 diabetes mellitus without complications (5) Overactive bladder: Status: Acute (6) Anxiety and depression: Status: Acute (7) Tremor: Status: Acute Reason for Visit Reason for Visit: M17.11 Brief History: Status post right total knee arthroplasty?[facility] robotic assisted Hospital Course Hospital Course Patient presented to the preoperative holding area with plan for right total knee arthroplasty after patient has been worked up in the outpatient setting for failed conservative treatment of [ right] knee degenerative joint disease. Once cleared by anesthesia for surgery patient subsequently was taken back to the operative suite underwent anesthesia per anesthesia department and then subsequently underwent a [ right] total knee arthroplasty. Procedure was performed without any complications patient was taken to PACU in stable condition patient recovered well in PACU and then was admitted to the floor postoperatively internal medicine was consulted and on board for medical management and assistance with care. Patient received appropriate PT/OT, postoperative antibiotics, postoperative TXA, pain control, postoperative DVT prophylaxis. Elevation and ice. Patient encouraged for knee range of motion allowed weightbearing as tolerated to the operative lower extremity. Dressing was changed as needed, labs were monitored daily. Patient recovered well postoperatively and worked well and progressed well with therapy. 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 It was determined on postoperative day [ 1] the patient was stable for discharge from an orthopedic standpoint and medicine. Patient was comfortable with discharge and plan was discharged home. Patient received appropriate discharge instructions as well as pain medication and DVT prophylaxis postoperatively. Given appropriate instructions for dressing management. Patient will follow-up with Dr. Dixon/orthopedics in the office in 2 weeks. All questions answered. Understand if there is any issues questions or concerns and contact the office. Physical Exam Narrative: Examination of the right knee dressings on in place clean dry and intact, normal swelling and tenderness palpation about the right knee compartments are soft compressible calf soft nontender patient able to wiggle toes plantarflex and dorsiflex ankle sensations intact light touch distally, distal pulses palpable. Urinary Catheter Management: [place]: Cath Placed During This Visit: yes, but has since been removed by the nurse Reason for Continuing Indwelling Catheter: Perioperative Use in Selected Surgeries Urinary Catheter Date of Insertion: 01/14/24 Urinary Catheter Time of Insertion: 11:00 Date Urinary Catheter Removed: 01/15/24 Time Urinary Catheter Discontinued: 06:05 Discharge Data Studies Completed and Pending Completed Studies During Hospitalization Category Date Time Status XR knee RT 1-2V 81177 Routine Exams 01/14/24 13:35 Completed Pending at discharge Category Date Time Status Basic Metabolic Panel AM LABS Lab 01/16/24 04:00 Ordered Basic Metabolic Panel AM LABS Lab 01/17/24 04:00 Ordered Complete Blood Count w/Auto AM LABS Lab 01/16/24 04:00 Ordered Complete Blood Count w/Auto AM LABS Lab 01/17/24 04:00 Ordered Laboratory Results WBC 9.91 10^3/uL (3.29-11.43) 01/15/24 04:53 RBC 3.63 10^6/uL (3.85-5.65) L 01/15/24 04:53 Hgb 11.30 g/dL (11.27-16.99) 01/15/24 04:53 Hct 34.5 % (36-47) L 01/15/24 04:53 MCV 95.0 fl (85-98) 01/15/24 04:53 MCH 31.1 pg (27-33) 01/15/24 04:53 MCHC 32.8 g/dL (30-55) 01/15/24 04:53 RDW 13.2 % (12.1-15.1) 01/15/24 04:53 Plt Count 140 10^3/cmm (157-399) L 01/15/24 04:53 MPV 11.0 fL (7.4-10.4) H 01/15/24 04:53 Neut % (Auto) 76.4 % 01/15/24 04:53 Lymph % (Auto) 15.7 % 01/15/24 04:53 Jack % (Auto) 7.4 % 01/15/24 04:53 Eos % (Auto) 0.1 % 01/15/24 04:53 Baso % (Auto) 0.1 % 01/15/24 04:53 Neut # (Auto) 7.57 10^3/uL (1.8-7.7) 01/15/24 04:53 Lymph # (Auto) 1.6 10^3/uL (0.8-4.8) 01/15/24 04:53 Jack # (Auto) 0.7 10^3/uL (0.2-0.9) 01/15/24 04:53 Eos # (Auto) 0.0 10^3/uL (0.0-0.8) 01/15/24 04:53 Baso # (Auto) 0.0 10^3/uL (0.0-0.1) 01/15/24 04:53 Nucleated RBC % (auto) 0 % 01/15/24 04:53 Nucleated RBCs # 0.0 /100WBC 01/15/24 04:53 Sodium 141 mmol/L (136-145) 01/15/24 04:53 Potassium 4.2 mmol/L (3.5-5.1) 01/15/24 04:53 Chloride 105 mmol/L (98-107) 01/15/24 04:53 Carbon Dioxide 26 mmol/L (22-29) 01/15/24 04:53 Anion Gap 14.2 (5-19) 01/15/24 04:53 BUN 26 mg/dL (8-23) H 01/15/24 04:53 Creatinine 0.6 mg/dL (0.5-0.9) 01/15/24 04:53 GFR Calculation Not Reportable 01/15/24 04:53 Glucose 123 mg/dL (65-115) H 01/15/24 04:53 POC Glucose 182 mg/dL (70-110) H 01/15/24 11:05 Estimat Average Glucose 126 01/15/24 04:53 Hemoglobin A1c 6.0 % (4.0-6.0) 01/15/24 04:53 Calculated Osmolality 298 mOsm/kg (285-295) H 01/15/24 04:53 Calcium 9.0 mg/dL (8.5-10.5) 01/15/24 04:53 Triglycerides 136 mg/dL (0-150) 01/14/24 20:46 Cholesterol 103 mg/dL (0-200) 01/14/24 20:46 LDL Cholesterol, Calc 38 mg/dL (50-129) L 01/14/24 20:46 HDL Cholesterol 38 mg/dL (60-100) L 01/14/24 20:46 LDL/HDL Ratio 1.00 RATIO (0.00-3.22) 01/14/24 20:46 Cholesterol/HDL Ratio 2.71 mg/dL (0.0-4.40) 01/14/24 20:46 Blood Type O Positive 01/14/24 09:50 Rho(D) Type Rh positive 01/14/24 09:50 Antibody Screen Negative 01/14/24 09:50 Vitals Last Vital Signs Temp 97.5 F L 01/15/24 12:15 Pulse 80 01/15/24 12:15 Resp 18 01/15/24 12:15 BP 170/66 01/15/24 12:15 Pulse Ox 92 01/15/24 12:15 O2 Del Method Room Air 01/15/24 12:15 Discharge Plan Discharge Patient Disposition: Home Health Service Condition: Stable Prescriptions: New Calcium 600 + D(3) 600 mg-10 mcg (400 unit) tablet 1 tab PO DAILY 30 Days Qty: 30 0RF Eliquis 2.5 mg tablet 2.5 mg PO BID 14 Days Qty: 28 0RF Continued cetirizine 10 mg tablet 10 mg PO DAILY Qty: 90 3RF primidone 50 mg tablet 100 mg PO TID Qty: 30 1RF citalopram 10 mg tablet 10 mg PO DAILY Qty: 90 3RF Rx Instructions: TAKE 1 TABLET BY MOUTH DAILY irbesartan 150 mg tablet 150 mg PO DAILY Qty: 90 3RF Rx Instructions: TAKE 1 TABLET BY MOUTH DAILY oxybutynin chloride 10 mg tablet extended release 24hr 10 mg PO DAILY Qty: 90 3RF Rx Instructions: TAKE 1 TABLET BY MOUTH ONCE DAILY fluticasone propionate [Flonase Allergy Relief] 50 mcg/actuation spra y,suspension 2 spray INTRANASAL DAILY Qty: 9.9 5RF Rx Instructions: administer into each nostril Farxiga 10 mg tablet See Rx Instructions .ROUTE .COMPLEX Qty: 30 5RF Dose Instruction: TAKE ONE TABLET BY MOUTH EVERY MORNING Rx Instructions: TAKE ONE TABLET BY MOUTH EVERY MORNING metoprolol tartrate 25 mg tablet 25 mg PO BID Qty: 200 3RF Rx Instructions: TAKE 1 TABLET BY MOUTH TWICE DAILY verapamil 120 mg tablet extended release 120 mg PO DAILY Qty: 100 3RF atorvastatin 20 mg tablet 20 mg PO DAILY Qty: 100 3RF Rx Instructions: TAKE 1 TABLET BY MOUTH DAILY Held celecoxib 200 mg capsule 200 mg PO DAILY Hold Instructions: Resume on 01/29/24. Rx Instructions: TAKE ONE CAPSULE BY MOUTH TWICE DAILY NEEDED FOR PAIN aspirin 81 mg Tablet,Delayed Release (Dr/Ec) 81 mg PO DAILY Hold Instructions: Resume on 01/29/24. No Action (DME) blood-glucose meter [Blood Glucose Monitoring] Kit See Rx Instructions .ROUTE .MEDSUPPLY Qty: 1 0RF Rx Instructions: use to check blood sugar daily and PRN (DME) Blood Glucose Test Strip See Rx Instructions .ROUTE .MEDSUPPLY Qty: 100 5RF Rx Instructions: use to check blood sugar daily and PRN (DME) diabetic shoes with 3 sets of insoles See Rx Instructions .Route .MEDSUPPLY Qty: 1 0RF Rx Instructions: As directed by [employer] (DME) OneTouch Verio test strips Strip See Rx Instructions .ROUTE .MEDSUPPLY Qty: 100 4RF Rx Instructions: To test 1 x day Discharge Orders: Discharge Order (Routine); Ordered 01/15/24 Ordered By: Duane Dixon Referrals: [facility] [Other] (You can Call this number to see if you qualify for in home services. You will need your medicaid number available when you call. ) [facility]) [Outside] Duane Dixon DO [Physician] - 01/31/24 2:45 pm Discharge Diet: Advance as tolerated Discharge Activity: Increase activity as tolerated, Use walker/crutches as instructed and As per PT/OT instructions Patient Instructions: Cephalexin (By mouth), Oxycodone, Rapid Release (By mouth), Ondansetron (By mouth), Apixaban (By mouth), Total Knee Replacement (GEN), Joint Replacement Stoplight, Opioid Safety Activity Restrictions/Additional Instructions: Orthopedic discharge instructions hans Dressing--Keep dressing on and dry. After 3 days you can remove some of the dressing and shower. disconnect battery pack when showering. Hans dressing will stay on for 1week. The battery pack for the dressing will at 5-7 days. Battery pack can be removed and discarded once batteries . May remove hans dressing after the 7 days and okay to shower. There will be a glued mesh over the incision. This is waterproof okay to shower, but avoid baths or soaks. After this replace with Silverlon bandage dressing and leave on until follow-up Patient may weight-bear as tolerate to the operative extremity Utilize crutches or walker as needed Encourage knee range of motion Use CPM (continuous passive range of motion) as instructed Ice and elevate as needed for pain and swelling Take pain medication as prescribed Take antinausea medication as needed Take the prescribed Eliquis twice daily for the next 14 days for blood clot prevention Hold daily aspirin until finished with Eliquis then may resume daily aspirin Take p.o. antibiotic as prescribed for surgical infection prophylaxis May supplement for pain with ibuprofen [id number] as needed No baths or soaks Follow-up in the orthopedic office in 2 weeks Contact the office for any questions or concerns Discharge Attestations Time Spent in Discharge Care*: less than 30 min Quality Metrics Clinical Quality Measures [ No reported AMI, CVA or VTE this stay] Coding Level of Care Code Acute Code for Chg Fwd Diagnoses Status post total right knee replacement Z96.651 Essential hypertension I10 Hypertension type: essential hypertension Hyperlipidemia, unspecified hyperlipidemia type E78.5 Hyperlipidemia type: unspecified Type 2 diabetes mellitus without complication, without long-term current use of insulin E11.9 Diabetes mellitus complication status: without complication Diabetes mellitus terminal worker insulin use: without penitentiary use Diabetes mellitus type: type 2 Overactive bladder N32.81 Anxiety and depression F41.9; F32.9 Tremor R25.1 Time Spent (min) 25
== END 2024-01-15 14:24 | disposition home health service (06) ==
LOC: MEDSURG 13:22
PROVIDERS: Family Medicine; Admitting Provider Student in an Organized Health Care Education/Training Program; PCP Nurse Practitioner Family; Visit Provider Student in an Organized Health Care Education/Training Program
PROC: 8E0Y0CZ Robotic Assisted Procedure of Lower Extremity, Open Approach (ICD-10-PCS; CPT 27447; principal; 2024-01-14 10:30)
DX: M17.11 Unilateral primary osteoarthritis, right knee (principal); I10 Essential (primary) hypertension; E78.5 Hyperlipidemia, unspecified; E11.9 Type 2 diabetes mellitus without complications; N32.81 Overactive bladder; F41.9 Anxiety disorder, unspecified; F32.9 Major depressive disorder, single episode, unspecified; R25.1 Tremor, unspecified; E66.01 Morbid (severe) obesity due to excess calories; Z68.37 Body mass index [BMI] 37.0-37.9, adult
CPT/HCPCS: 20985; 27447; 36415; 36416; 51702; 73560; 80048; 80061; 82962; 83036; 85025; 86850; 86900; 97110; 97116; 97161; 97165; 97530; C1776; G0378; J0131; J0171; J0690; J1100; J1885; J2371; J2405; J2704; J2795; J3010; J3370; J3490; J7030; J7120

== ENCOUNTER 2024-01-30 06:00 | Outpatient (RCR) | payer MEDICARE, MEDICAID, SELFPAY | END 2024-02-29 23:59 | disposition home or self-care (01) | LOC: TPT 06:00 | PROVIDERS: Visit Provider Student in an Organized Health Care Education/Training Program | DX: Z47.1 Aftercare following joint replacement surgery (principal); Z96.651 Presence of right artificial knee joint | CPT/HCPCS: 97110; 97140; 97162 ==

== ENCOUNTER → 2024-01-31 14:02 | Outpatient (BNVA) | payer MEDICARE, MEDICAID, SELFPAY | PROVIDERS: PCP Nurse Practitioner Family; Visit Provider Student in an Organized Health Care Education/Training Program | DX: Z96.651 Presence of right artificial knee joint (principal); Z48.89 Encounter for other specified surgical aftercare; Z79.899 Other long term (current) drug therapy | CPT/HCPCS: 73560; 73565; 99024 ==

== ENCOUNTER 2024-03-01 06:00 | Outpatient (RCR) | payer MEDICARE, MEDICAID, SELFPAY | END 2024-03-30 23:59 | disposition home or self-care (01) | LOC: TPT 06:00 | PROVIDERS: PCP Nurse Practitioner Family; Visit Provider Student in an Organized Health Care Education/Training Program | DX: Z47.1 Aftercare following joint replacement surgery (principal); Z96.651 Presence of right artificial knee joint | CPT/HCPCS: 97110; 97140 ==

== ENCOUNTER → 2024-03-13 14:40 | Outpatient (BNVA) | payer MEDICARE, MEDICAID, SELFPAY | PROVIDERS: PCP Nurse Practitioner Family; Visit Provider Student in an Organized Health Care Education/Training Program | DX: Z96.651 Presence of right artificial knee joint (principal); T84.82XA Fibrosis due to internal orthopedic prosthetic devices, implants and grafts, initial encounter; Y79.2 Prosthetic and other implants, materials and accessory orthopedic devices associated with adverse incidents | CPT/HCPCS: 73560; 73565; 99024 ==

== ENCOUNTER 2024-03-31 06:00 | Outpatient (RCR) | payer MEDICARE, MEDICAID, SELFPAY | END 2024-04-30 23:59 | disposition home or self-care (01) | LOC: TPT 06:00 | PROVIDERS: PCP Nurse Practitioner Family; Visit Provider Student in an Organized Health Care Education/Training Program | DX: Z47.1 Aftercare following joint replacement surgery (principal); Z96.651 Presence of right artificial knee joint | CPT/HCPCS: 97110; 97140 ==

== ENCOUNTER → 2024-04-07 12:12 | Outpatient (BNVA) | payer MEDICARE, SELFPAY | PROVIDERS: PCP Nurse Practitioner Family; Visit Provider Nurse Practitioner Family | DX: E11.9 Type 2 diabetes mellitus without complications (principal); E78.5 Hyperlipidemia, unspecified; E55.9 Vitamin D deficiency, unspecified; I10 Essential (primary) hypertension | CPT/HCPCS: 80053; 80061; 82306; 83036; 83735; 85025 ==

== ENCOUNTER → 2024-04-18 11:00 | Outpatient (BNVA) | payer MEDICARE, MEDICAID, SELFPAY | PROVIDERS: PCP Nurse Practitioner Family; Visit Provider Podiatrist Foot & Ankle Surgery | DX: E11.8 Type 2 diabetes mellitus with unspecified complications (principal); E11.42 Type 2 diabetes mellitus with diabetic polyneuropathy; M21.621 Bunionette of right foot; M21.622 Bunionette of left foot | CPT/HCPCS: 99213 ==

== ENCOUNTER 2024-05-01 06:00 | Outpatient (RCR) | payer MEDICARE, MEDICAID, SELFPAY | END 2024-05-31 23:59 | disposition home or self-care (01) | LOC: TPT 06:00 | PROVIDERS: PCP Nurse Practitioner Family; Visit Provider Student in an Organized Health Care Education/Training Program | DX: Z47.1 Aftercare following joint replacement surgery (principal); Z96.651 Presence of right artificial knee joint | CPT/HCPCS: 97110; 97140 ==

== ENCOUNTER 2024-06-01 06:00 | Outpatient (RCR) | payer MEDICARE, MEDICAID, SELFPAY | END 2024-06-30 23:59 | disposition home or self-care (01) | LOC: TPT 06:00 | PROVIDERS: PCP Nurse Practitioner Family; Visit Provider Student in an Organized Health Care Education/Training Program | DX: Z47.1 Aftercare following joint replacement surgery (principal); Z96.651 Presence of right artificial knee joint | CPT/HCPCS: 97110; 97140 ==

== ENCOUNTER → 2024-06-17 09:59 | Outpatient (BNVA) | payer MEDICARE, MEDICAID, SELFPAY | PROVIDERS: PCP Nurse Practitioner Family; Visit Provider Student in an Organized Health Care Education/Training Program | DX: Z96.653 Presence of artificial knee joint, bilateral (principal) | CPT/HCPCS: 73560; 73565; 99213 ==

== ENCOUNTER 2024-07-01 06:00 | Outpatient (RCR) | payer MEDICARE, MEDICAID, SELFPAY | END 2024-07-02 23:59 | disposition home or self-care (01) | LOC: TPT 06:00 | PROVIDERS: PCP Nurse Practitioner Family; Visit Provider Student in an Organized Health Care Education/Training Program | DX: Z47.1 Aftercare following joint replacement surgery (principal); Z96.651 Presence of right artificial knee joint | CPT/HCPCS: 97110 ==

== ENCOUNTER → 2024-09-30 07:55 | Outpatient (BNVA) | payer MEDICARE, MEDICAID, SELFPAY | PROVIDERS: PCP Nurse Practitioner Family; Visit Provider Podiatrist Foot & Ankle Surgery | DX: E11.8 Type 2 diabetes mellitus with unspecified complications (principal); E11.42 Type 2 diabetes mellitus with diabetic polyneuropathy; M21.621 Bunionette of right foot; M21.622 Bunionette of left foot | CPT/HCPCS: 99213 ==

== ENCOUNTER → 2024-10-16 08:36 | Outpatient (BNVA) | payer MEDICARE, MEDICAID, SELFPAY | PROVIDERS: PCP Nurse Practitioner Family; Visit Provider Nurse Practitioner Family | DX: I10 Essential (primary) hypertension (principal); E11.9 Type 2 diabetes mellitus without complications; E55.9 Vitamin D deficiency, unspecified; E78.5 Hyperlipidemia, unspecified | CPT/HCPCS: 80053; 80061; 82043; 82306; 83036; 83735; 85025 ==

== ENCOUNTER → 2025-03-19 11:13 | Outpatient (BNVA) | payer MEDICARE, MEDICAID, SELFPAY | PROVIDERS: PCP Nurse Practitioner Family; Visit Provider Nurse Practitioner Family | DX: I10 Essential (primary) hypertension (principal); E11.9 Type 2 diabetes mellitus without complications; E55.9 Vitamin D deficiency, unspecified | CPT/HCPCS: 80053; 80061; 82306; 82607; 83036; 84443; 85025 ==

== ENCOUNTER → 2025-04-21 07:09 | Outpatient (BNVA) | payer MEDICARE, MEDICAID, SELFPAY | PROVIDERS: PCP Nurse Practitioner Family; Visit Provider Podiatrist Foot & Ankle Surgery | DX: E11.42 Type 2 diabetes mellitus with diabetic polyneuropathy (principal); L60.3 Nail dystrophy; M21.621 Bunionette of right foot; M21.622 Bunionette of left foot; R60.1 Generalized edema | CPT/HCPCS: 11721 ==

== ENCOUNTER → 2025-09-28 09:02 | Outpatient (BNVA) | payer MEDICARE, MEDICAID, SELFPAY | PROVIDERS: PCP Nurse Practitioner Family; Visit Provider Podiatrist Foot & Ankle Surgery | DX: E11.8 Type 2 diabetes mellitus with unspecified complications (principal); E11.42 Type 2 diabetes mellitus with diabetic polyneuropathy; M21.621 Bunionette of right foot; M21.622 Bunionette of left foot; R60.1 Generalized edema | CPT/HCPCS: 99213 ==